=== PATIENT | male | born 1990 | race Caucasian/White ===

== ENCOUNTER → 2017-10-26 12:31 | Outpatient (CLI) | payer BC, SELFPAY ==
--- NOTE | 2017-10-26 12:47 | CT_ITS ---
CT abdomen pelvis wo con CLINICAL INDICATION: Hematuria, kidney stones, low back pain ITS.REASON: HEMATURIA ORDERING PHYSICIAN: Ranjana Garcia PATIENT AGE: 26 years COMPARISON: None TECHNIQUE: Axial images obtained with sagittal and coronal reformats. All CT scans at the facility use one or more dose reduction, viz: automated exposure control, ma/kV adjustment per patient size (including targeted exams where dose is matched to indication, i.e. head), or iterative reconstruction technique. PROCEDURE: Oral Contrast: None IV Contrast: None . FINDINGS: 4 mm noncalcified nodule present in the right lung base anteriorly nonspecific. The liver, spleen, adrenal glands, pancreas, gallbladder, and kidneys have unremarkable unenhanced CT appearance. No renal or ureteral calculi. No hydronephrosis. No obvious renal mass on this unenhanced exam. Unremarkable appendix. No intestinal obstruction, free air, or focal inflammatory change evident. There may be a small diverticulum in the sigmoid region but no evidence of diverticulitis No pelvic mass or abnormal fluid collection or focal inflammatory changes pelvis. No acute bony anomalies. IMPRESSION: No acute abdominal or pelvic findings.
== END ==
PROVIDERS: PCP Internal Medicine Adolescent Medicine; Visit Provider Nurse Practitioner Family
DX: R31.9 Hematuria, unspecified (principal)
CPT/HCPCS: 74176

== ENCOUNTER → 2018-02-14 12:44 | Outpatient (CLI) | payer BC, SELFPAY ==
--- NOTE | 2018-02-14 12:47 | CT_ITS ---
CT chest w con HISTORY: Follow-up pulmonary nodule ITS.REASON: LUNG NODULE ORDERING PHYSICIAN: Raz Castillo MD PATIENT AGE: 27 years COMPARISON: 10/26/2017 TECHNIQUE: Axial images obtained following the administration of 75 mL of Isovue 370 . Sagittal, and coronal reformatted images are also generated and reviewed. All CT scans at the facility use one or more dose reduction, viz: automated exposure control, ma/kV adjustment per patient size (including targeted exams where dose is matched to indication, i.e. head), or iterative reconstruction technique. FINDINGS: Residual thymic tissue noted in the anterior mediastinum. Mild cardiomegaly with prominent left ventricle. No evidence of aortic aneurysm or central pulmonary embolus. No change 4 x 2 mm nodule right lung base anteriorly. No other nodules.. No infiltrates or effusions. Upper abdominal images are unremarkable. No acute bony anomaly. There is a circumscribed lucency involving the vertebral body on the right at T11 measuring 8 mm possibly due to small hemangioma unchanged with a benign appearance. IMPRESSION: 1. No acute finding. 2. Cardiomegaly with left ventricular enlargement. 3. No change 4 mm nodule right lower lobe which may be due to to small intrapulmonary lymph node
== END ==
PROVIDERS: PCP Internal Medicine Adolescent Medicine; Visit Provider Internal Medicine Adolescent Medicine
DX: R91.1 Solitary pulmonary nodule (principal)
CPT/HCPCS: 71260; Q9967

== ENCOUNTER → 2018-03-05 09:35 | Outpatient (CLI) | payer BC, SELFPAY | PROVIDERS: PCP Internal Medicine Adolescent Medicine; Visit Provider Internal Medicine Adolescent Medicine | DX: I51.7 Cardiomegaly (principal) | CPT/HCPCS: 93306 ==

== ENCOUNTER 2018-05-04 10:57 | Outpatient (CLI) | payer BC, SELFPAY ==
[2018-05-04 12:13] LABS: INR 2.16 (0.9-1.1); Prothrombin Time 21.8 seconds (9.4-11.8)
[2018-05-04 13:45] LABS: PHA INR Fingerstick 2.7 (0.9-1.1)
== END 2018-05-04 14:22 | disposition home or self-care (01) ==
LOC: ACC 10:59
PROVIDERS: PCP Internal Medicine Adolescent Medicine; Visit Provider Thoracic Surgery (Cardiothoracic Vascular Surgery)
DX: Z51.81 Encounter for therapeutic drug level monitoring (principal); Z79.01 Long term (current) use of anticoagulants; Z95.2 Presence of prosthetic heart valve
CPT/HCPCS: 36415; 85610; 99211; G0463

== ENCOUNTER 2018-05-07 10:07 | Outpatient (CLI) | payer BC, SELFPAY ==
[2018-05-07 11:18] LABS: PHA INR Fingerstick 2.4 (0.9-1.1)
== END 2018-05-07 11:35 | disposition home or self-care (01) ==
LOC: ACC 10:07
PROVIDERS: PCP Internal Medicine Adolescent Medicine; Visit Provider Internal Medicine Adolescent Medicine
DX: Z51.81 Encounter for therapeutic drug level monitoring (principal); Z79.01 Long term (current) use of anticoagulants
CPT/HCPCS: 85610; 99211; G0463

== ENCOUNTER 2018-05-14 09:05 | Outpatient (CLI) | payer BC, SELFPAY ==
[2018-05-14 11:13] LABS: PHA INR Fingerstick 1.7 (0.9-1.1)
== END 2018-05-14 12:53 | disposition home or self-care (01) ==
LOC: ACC 09:05
PROVIDERS: PCP Internal Medicine Adolescent Medicine; Visit Provider Internal Medicine Adolescent Medicine
DX: Z51.81 Encounter for therapeutic drug level monitoring (principal); Z79.01 Long term (current) use of anticoagulants
CPT/HCPCS: 85610; 99211; G0463

== ENCOUNTER 2018-05-23 10:31 | Outpatient (CLI) | payer BC, SELFPAY ==
[2018-05-23 14:19] LABS: PHA INR Fingerstick 1.8 (0.9-1.1)
== END 2018-05-23 14:28 | disposition home or self-care (01) ==
LOC: ACC 10:31
PROVIDERS: PCP Internal Medicine Adolescent Medicine; Visit Provider Internal Medicine Adolescent Medicine
DX: Z51.81 Encounter for therapeutic drug level monitoring (principal); Z79.01 Long term (current) use of anticoagulants
CPT/HCPCS: 85610; 99211; G0463

== ENCOUNTER 2018-05-25 14:35 | Outpatient (CLI) | payer BC, SELFPAY ==
[2018-05-25 15:57] LABS: PHA INR Fingerstick 1.8 (0.9-1.1)
== END 2018-05-25 16:07 | disposition home or self-care (01) ==
LOC: ACC 14:39
PROVIDERS: PCP Internal Medicine Adolescent Medicine; Visit Provider Internal Medicine Adolescent Medicine
DX: Z51.81 Encounter for therapeutic drug level monitoring (principal); Z79.01 Long term (current) use of anticoagulants
CPT/HCPCS: 85610; 99211; G0463

== ENCOUNTER 2018-05-28 10:19 | Outpatient (CLI) | payer BC, SELFPAY ==
[2018-05-28 15:57] LABS: PHA INR Fingerstick 2.3 (0.9-1.1)
== END 2018-05-28 15:59 | disposition home or self-care (01) ==
LOC: ACC 10:20
PROVIDERS: PCP Internal Medicine Adolescent Medicine; Visit Provider Internal Medicine Adolescent Medicine
DX: Z51.81 Encounter for therapeutic drug level monitoring (principal); Z79.01 Long term (current) use of anticoagulants
CPT/HCPCS: 85610; 99211; G0463

== ENCOUNTER 2018-06-04 11:14 | Outpatient (CLI) | payer BC, SELFPAY ==
[2018-06-04 16:06] LABS: PHA INR Fingerstick 1.7 (0.9-1.1)
== END 2018-06-04 16:11 | disposition home or self-care (01) ==
LOC: ACC 11:14
PROVIDERS: PCP Internal Medicine Adolescent Medicine; Visit Provider Internal Medicine Adolescent Medicine
DX: Z51.81 Encounter for therapeutic drug level monitoring (principal); Z79.01 Long term (current) use of anticoagulants
CPT/HCPCS: 85610; 99211; G0463

== ENCOUNTER 2018-06-13 11:13 | Outpatient (CLI) | payer BC, SELFPAY ==
[2018-06-13 15:44] LABS: PHA INR Fingerstick 2.5 (0.9-1.1)
== END 2018-06-13 15:46 | disposition home or self-care (01) ==
LOC: ACC 11:14
PROVIDERS: PCP Internal Medicine Adolescent Medicine; Visit Provider Internal Medicine Adolescent Medicine
DX: Z51.81 Encounter for therapeutic drug level monitoring (principal); Z79.01 Long term (current) use of anticoagulants; Z95.2 Presence of prosthetic heart valve
CPT/HCPCS: 85610; 99211; G0463

== ENCOUNTER → 2018-10-18 14:55 | Outpatient (CLI) | payer BC, SELFPAY ==
--- NOTE | 2018-10-18 14:59 | CA_ITS ---
PROCEDURE: 2-D M-mode and color Doppler study INDICATIONS FOR THE TEST: Chest pain COPD Heart Murmur Tobacco Smoking Palpitations+ Fatigue Syncope Edema Hypertension+Diabetes Mellitus Rheumatic Fever SOB HERNANDEZ Obesity Hyperlipidemia+ Family History HD+ Additional History cardiomegaly, chest pressure PATIENT INFORMATION HEIGHT: 70 WEIGHT: 213 GENDER: Male B/P: 122/74 2-D/M-MODE INTERPRETATION: 2-D MEASUREMENTS OBSERVED VALUES IN CMS Right Ventricular Dimension (RVDd) 2.7 Interventricular Septum (Thickness)(IVsd) 0.9 Left Ventricular Internal Dimensions(LVIDd) 5.3 Left Ventricular Posterior Wall (Thickness)(LVPWd) 1.0 Aortic Root 2.0 5 Aortic Cusp Separation Left Atrial Dimensions (LAD) 3.2 2D 1. Left atrium is mildly enlarged, left ventricle is qualitatively mildly enlarged, there is no concentric left ventricular hypertrophy, visually estimated ejection fraction 55% with no regional wall motion abnormality. 2 .The right atrium and right ventricle are mildly enlarged with normal contractility 3. There is a mechanical prosthetic valve noted in the aortic position, leaflets are not well visualized. 4. The mitral and tricuspid valve are grossly normal. 5. The pulmonic valve is poorly visualized. 6. No significant pericardial effusion noted. DOPPLER INTERROGATION: 1. The maximum aortic out flow velocity recorded study 3.34 m/s, resulting in a mean gradient across valve of 28 mmHg, this represents at least moderate study valve stenosis, there is severe aortic insufficiency. 2. The mitral inflow velocity within normal range, there is no mitral stenosis, there is mild mitral regurgitation. Diastolic parameters are within normal range. 3. There is mild tricuspid regurgitation, tricuspid regurgitation jet velocity is inadequate for calculation of the right ventricular systolic pressure. CONCLUSION: 1. Mildly enlarged left atrium, mildly dilated left ventricle, visually estimated ejection fraction 55% with no regional wall motion abnormality. 2. Prosthetic valve in aortic position, mean gradient across valve is 28 mmHg which represents at least moderate prosthetic valve stenosis, there is severe aortic insufficiency. 3. Mild mitral and tricuspid regurgitation 4. Transesophageal echocardiogram is recommended for further evaluation of the prosthetic valve function.
== END ==
PROVIDERS: PCP Internal Medicine Adolescent Medicine; Visit Provider Internal Medicine Adolescent Medicine
DX: Z95.2 Presence of prosthetic heart valve (principal)
CPT/HCPCS: 93306

== ENCOUNTER → 2019-01-28 09:41 | Outpatient (CLI) | payer BC, SELFPAY ==
[2019-01-28 10:02] LABS: Basophils # 0.1 K/mm3 (0-0.2); Basophils % 1.4 % (0.1-2.0); Eosinophils # 0.3 K/mm3 (0.0-0.4); Eosinophils % 4.5 % (0.1-12.0); Hematocrit 39.8 % (42.0-52.0); Hemoglobin 12.4 g/dL (14.1-18.0); Lymphocytes # 1.7 K/mm3 (0.7-4.5); Lymphocytes % 24.2 % (10-50); Mean Corpuscular HGB Conc 31.1 g/dL (31.8-35.4); Mean Corpuscular Volume 93.4 fl (80-94); Monocytes # 0.4 K/mm3 (0.1-1.0); Monocytes % 5.1 % (1.7-9.3); Neutrophils # 4.4 K/mm3 (1.8-7.8); Neutrophils % 64.8 % (37.0-80.0); Platelet Count 348 K/mm3 (142-424); Red Blood Count 4.26 M/mm3 (4.60-6.20); Red Cell Distribution Width 14.1 % (11.5-17.5); White Blood Count 6.8 K/mm3 (4.8-10.8)
[2019-01-28 10:50] LABS: Anion Gap 13.3 mEq/L (5-15); Blood Urea Nitrogen 12 mg/dL (7-18); Calcium 9.2 mg/dL (8.5-10.1); Carbon Dioxide 28 mmol/L (21.0-32.0); Chloride 105 mmol/L (98-107); Creatinine,Serum 0.73 mg/dL (0.70-1.30); Estimated Glomerular Filt Rate 127 ml/min (>60); GFR (African American) 154 ML/MIN (>60); Glucose 84 mg/dL (74-106); Potassium 4.3 mmoL/L (3.5-5.1); Sodium 142 mmol/L (136-145)
== END ==
PROVIDERS: Visit Provider Thoracic Surgery (Cardiothoracic Vascular Surgery)
DX: I35.1 Nonrheumatic aortic (valve) insufficiency (principal); R03.0 Elevated blood-pressure reading, without diagnosis of hypertension
CPT/HCPCS: 36415; 80048; 85025

== ENCOUNTER 2019-02-04 13:01 | Outpatient (RCR) | payer BC, SELFPAY | END 2019-06-19 10:19 | disposition home or self-care (01) | LOC: PT 13:01 | PROVIDERS: Visit Provider Thoracic Surgery (Cardiothoracic Vascular Surgery) | DX: Z95.2 Presence of prosthetic heart valve (principal) ==

== ENCOUNTER → 2019-02-26 15:02 | Outpatient (CLI) | payer BC, SELFPAY ==
--- NOTE | 2019-02-26 15:02 | CA_ITS ---
APPROVED REPORT EXAM: Comprehensive 2D, Doppler, and color-flow Echocardiogram [employer]im [employer] Crown Laminating Operator: Nicolle Soto CRT Ht: 5 ft 10 in Wt: 223lbs BSA: 2.19 BP: 125/69 mmHg Indications: Aortic Valve Disease, PROSTHETIC AV 2D Dimensions LVOT 1.73 cm (M/F) 1.5-2.5 M-Mode Dimensions RVDd 3.37 cm (0.9-2.6) LVDd 5.14 cm (3.5-5.7) LVDs 4.26 cm (3.5-5.7) IVSd 1.08 cm (0.6-1.1) PWd 0.90 cm (0.6-1.1) EF (Teich) 35.50% FS 17.10% EDV (Teich) 126.10 mL ESV (Teich) 81.30 mL LV Diastology E/A Ratio 1.31 Aortic Valve LVOT Max 134.00 (70-110 cm/s) LVOT VTI 25.63 cm Mitral Valve MV A Velocity 54.00 (40-130 cm/s) Left Ventricle Left atrium is mildly enlarged, left ventricle is normal size, left ventricle wall thickness is upper limit of the normal, there is abnormal septal motion, visually estimated ejection fraction 45% with no regional wall motion abnormality. Right Ventricle Right atrium and right ventricular normal size and contractility. Aortic Valve There is a bioprosthetic valve noted in the aortic position, the valve is well-seated. Mean gradient across valve is 12 mmHg which is within acceptable range for the skin valve, there is no aortic insufficiency. Mitral Valve Mitral valve is grossly normal, there is mild mitral regurgitation. Tricuspid Valve Tricuspid valve is grossly normal, there is mild tricuspid regurgitation, tricuspid regurgitation jet velocity is inadequate for calculation of the right ventricular systolic pressure. Pulmonic Valve Pulmonic valve is poorly visualized. Great Vessels Aortic root is normal size. Pericardium No significant pericardial effusion noted. Conclusion 1. Mildly enlarged left atrium, normal left ventricular size, abnormal septal motion, visually estimated ejection fraction 45% with no regional wall motion abnormality, diastolic parameters are within normal range. 2. Normal functioning bioprosthetic valve in the aortic position without significant aortic outflow obstruction or aortic insufficiency. 3. Mild mitral and tricuspid regurgitation. 4. No significant pericardial effusion noted. Electronically signed by : Wilmer Amador, 02/27/2019 06:45:00
== END ==
PROVIDERS: PCP Internal Medicine Adolescent Medicine; Visit Provider Internal Medicine Cardiovascular Disease
DX: Z95.2 Presence of prosthetic heart valve (principal); Z95.3 Presence of xenogenic heart valve
CPT/HCPCS: 93306

== ENCOUNTER → 2019-07-31 09:31 | Outpatient (CLI) | payer BC, SELFPAY ==
--- NOTE | 2019-07-31 | CA_ITS ---
APPROVED REPORT Exam: Exercise Treadmill Technologist: Tika Saldivar Ht: 5 ft 10 in Wt: 215 lbs BSA: 2.15 m2 HR: 68 bpm BP: 134/73 mmHg Indications: Dyspnea Medical History Medications: Omeprazole,,,,, Aspirin,,,,, Losartan,,,,, Diclofenac,,,,, Stress Test Details Test: Aime HR Resting HR: 81 bpm Max Heart Rate (APMHR): 191 bpm Max HR Achieved: 170 bpm Target HR (85% APMHR): 162 bpm % of APMHR: 89 Recovery HR: 109 bpm BP Resting BP: 134.0/73.0 mmHg Max BP: 156.0/52.0 mmHg Recovery BP: 141.0/82.0 mmHg ECG Medications Administered Aminophylline ( mg at ) Clinical Exercise duration: 09:11 min Highest Stage Achieved: Exercise capacity: 10.1 METs Stress ECG Conclusion Resting ECG: Sinus rhythm Aime protocol completed. Exercised 09:11. Test stopped due to leg fatigue and shortness of breath. Symptoms: Shortness of breath (usually short of breath) and leg fatigue at peak exercise. Resolved in recovery. Arrhythmias/Ectopy: No ectopy ST-T Changes: Greater than 1.[address] depression. Conclusion: GXT only. Appropriate blood pressure response. Good exercise tolerance. No ectopy. No chest pain. Less than 1.[address] depression noted. Electronically signed by : Wilmer Amador, 08/01/2019 14:07:20
== END ==
PROVIDERS: PCP Internal Medicine Adolescent Medicine; Visit Provider Internal Medicine Cardiovascular Disease
DX: Z95.3 Presence of xenogenic heart valve (principal); Z95.2 Presence of prosthetic heart valve
CPT/HCPCS: 93017

== ENCOUNTER → 2020-03-10 15:18 | Outpatient (CLI) | payer BC, SELFPAY ==
--- NOTE | 2020-03-10 15:21 | XR_ITS ---
PROCEDURE: XR FOOT WT BEARING RT 3V CLINICAL INDICATION: pain COMPARISON: CR FTR3 FOOT-RT-3 VIEWS from 11/13/2015 FINDINGS: No fracture or dislocation. No lytic or blastic change. There is normal mineralization. There is pes planus with osteoarthritic change noted at the talonavicular joint and calcaneocuboid joint. There is some sclerosis along the inferior aspect of the calcaneus centrally and anteriorly. This is best seen on the oblique view. Other findings:None. IMPRESSION: Pes planus with degenerative change Dictated by: Anderson Cristina MD 03/10/2020 15:39 Anderson Cristina MD in [place] 03/10/2020 15:39
--- NOTE | 2020-03-10 15:21 | XR_ITS ---
PROCEDURE: XR FOOT WT BEARING LT 3V CLINICAL INDICATION: pain COMPARISON: CR FTR3 FOOT-RT-3 VIEWS from 11/13/2015 FINDINGS: No fracture or dislocation. No lytic or blastic change. There is normal mineralization. The joint spaces are well-preserved. No significant degenerative/arthritic changes. No erosive changes evident. Other findings:There is pes planus with mild osteoarthritic change at the talonavicular joint. IMPRESSION: Pes planus Dictated by: Anderson Cristina MD 03/10/2020 15:40 Anderson Cristina MD in [facility] 03/10/2020 15:40
== END ==
PROVIDERS: PCP Internal Medicine Adolescent Medicine; Visit Provider Podiatrist
DX: M19.072 Primary osteoarthritis, left ankle and foot (principal); M19.071 Primary osteoarthritis, right ankle and foot; M21.6X1 Other acquired deformities of right foot; M21.6X2 Other acquired deformities of left foot; M76.822 Posterior tibial tendinitis, left leg; M76.821 Posterior tibial tendinitis, right leg
CPT/HCPCS: 73630

== ENCOUNTER → 2020-05-25 07:54 | Outpatient (CLI) | payer BC, SELFPAY ==
--- NOTE | 2020-05-25 07:54 | MR_ITS ---
PROCEDURE: MR ANKLE LT WO CON CLINICAL INDICATION: foot pain COMPARISON: CR XR FOOT WT BEARING LT 3V from 03/10/2020 TECHNIQUE: Routine multiplanar multi echo sequences are performed without gadolinium enhancement. FINDINGS: There is diffuse increased T2 signal involving the mid and distal aspect of the calcaneus as well as the lateral aspect of the talus. The tibiofibular ligaments unremarkable. The ATFL and PT FL appears intact. The deltoid ligament also appears intact. Talar dome has an unremarkable appearance. The posterior tibialis, flexor digitorum longus and flexor hallucis longus tendons appearing intact as do the peroneal longus and brevis tendons. The anterior extensor tendons are unremarkable. There is lateral location of the navicular at the talonavicular joint with uncovering of the medial aspect of the talar head. No evidence of tarsal coalition. There are mild degenerative changes in the tarsal bones. No abnormal fluid collections evident. No bony destructive process. There is pes planus. There is a small amount of fluid present in Kager's fat pad region. IMPRESSION: Pes planus. No tendinous or ligamentous abnormalities. Diffuse bone marrow edema of the calcaneus and talus. Etiology is indeterminate. Mild degenerative changes of the tarsal bones Dictated by: Anderson Cristina MD 05/25/2020 14:48 Anderson Cristina MD in [facility] 05/25/2020 14:48
--- NOTE | 2020-05-25 16:52 | XR_ITS ---
PROCEDURE: XR CHEST 2V CLINICAL HISTORY: HX OF OPEN HEART SURGERY Heart disease COMPARISON: CT CHESTW CT chest w con from 02/14/2018 CR CXR2V XR chest 2V from 05/03/2018 FINDINGS: Prior median sternotomy and aortic valve replacement. Normal heart size. No evidence of CHF. The lungs are clear without infiltrates, suspicious nodules, or pleural effusions. No acute bony abnormalities. IMPRESSION: No acute findings. Dictated by: Anderson Cristina MD 05/26/2020 07:19 Anderson Cristina MD in [facility] 05/26/2020 07:19
[2020-05-25 17:36] LABS: Basophils # 0.1 K/mm3 (0-0.2); Basophils % 0.8 % (0.1-2.0); Eosinophils # 0.1 K/mm3 (0.0-0.4); Eosinophils % 1.3 % (0.1-12.0); Hematocrit 44.9 % (42.0-52.0); Hemoglobin 14.7 g/dL (14.1-18.0); Lymphocytes # 2.1 K/mm3 (0.7-4.5); Mean Corpuscular HGB Conc 32.7 g/dL (31.8-35.4); Mean Corpuscular Hemoglobin 29.7 pg (27.0-31.2); Mean Corpuscular Volume 90.7 fl (80-94); Monocytes # 0.3 K/mm3 (0.1-1.0); Neutrophils # 4.1 K/mm3 (1.8-7.8); Platelet Count 259 K/mm3 (142-424); Red Blood Count 4.96 M/mm3 (4.60-6.20); Red Cell Distribution Width 13.4 % (11.5-17.5); White Blood Count 6.6 K/mm3 (4.8-10.8)
[2020-05-25 18:43] LABS: Alanine Aminotransferase 21 U/L (12-78); Albumin Level 4.9 g/dl (3.5-5.0); Albumin/Globulin Ratio 1.5 (1.1-1.8); Alkaline Phosphatase 96 U/L (38-126); Anion Gap 9.3 mEq/L (5-15); Aspartate Amino Transferase 26 U/L (17-59); Bilirubin,Total 0.3 mg/dl (0.2-1.3); Blood Urea Nitrogen 11 mg/dl (9-20); Calcium 9.8 mg/dl (8.4-10.2); Carbon Dioxide 29 mmol/L (22.0-30.0); Chloride 105 mmol/L (98-107); Estimated Glomerular Filt Rate 114 ml/min (>60); GFR (African American) 137 ML/MIN (>60); Globulin 3.3 g/dL (1.3-3.2); Glucose 87 mg/dl (74-100); Potassium 4.3 mmoL/L (3.5-5.1); Sodium 139 mmol/L (136-145); Total Protein,Serum 8.2 g/dl (6.3-8.2)
[2020-05-25 19:03] LABS: 25-OH Vitamin D, Total < 12.8 ng/mL (30-100)
== END ==
PROVIDERS: PCP Internal Medicine Adolescent Medicine; Visit Provider Podiatrist
DX: M19.072 Primary osteoarthritis, left ankle and foot (principal); M25.572 Pain in left ankle and joints of left foot; M25.872 Other specified joint disorders, left ankle and foot; M19.071 Primary osteoarthritis, right ankle and foot; E55.9 Vitamin D deficiency, unspecified; Z98.890 Other specified postprocedural states
CPT/HCPCS: 36415; 71046; 73721; 80053; 82306; 85025

== ENCOUNTER → 2020-06-01 14:47 | Outpatient (CLI) | payer BC, SELFPAY ==
[2020-06-02 09:20] LABS: Coronavirus 19 IgG Antibody Positive (Negative); Coronavirus 19 IgM Antibody Positive (Negative)
== END ==
PROVIDERS: Visit Provider Podiatrist
DX: Z01.818 Encounter for other preprocedural examination (principal); Z20.822 Contact with and (suspected) exposure to COVID-19; Z86.16 Personal history of COVID-19; M79.672 Pain in left foot; M79.671 Pain in right foot; M21.42 Flat foot [pes planus] (acquired), left foot
CPT/HCPCS: 36415; 86328

== ENCOUNTER → 2020-06-02 12:49 | Outpatient (CLI) | payer BC, SELFPAY | PROVIDERS: PCP Internal Medicine Adolescent Medicine; Visit Provider Podiatrist | DX: Z20.822 Contact with and (suspected) exposure to COVID-19 (principal); Z01.818 Encounter for other preprocedural examination; U07.1 COVID-19 | CPT/HCPCS: U0003 ==

== ENCOUNTER → 2020-06-15 08:20 | Outpatient (CLI) | payer BC, SELFPAY | PROVIDERS: PCP Internal Medicine Adolescent Medicine; Visit Provider Podiatrist | DX: Z20.822 Contact with and (suspected) exposure to COVID-19 (principal) | CPT/HCPCS: U0003 ==

== ENCOUNTER 2020-06-17 13:30 | Observation (INO) | payer BC, SELFPAY ==
[2020-05-28 12:44] VITALS: BMI 32.3
[2020-06-17] VITALS (25 sets, daily range): BP systolic 110–141; BP diastolic 55–89; PULSE 79–120; RESP 14–20; TEMP 6.1–43; O2SAT 92–100; BMI 35.2
--- NOTE | 2020-06-17 07:29 | XR_ITS ---
PROCEDURE: XR ANKLE LT MIN 3V CLINICAL INDICATION: Post op flatfoot COMPARISON: CR ANKR3 ANKLE-RT-3 VIEWS from 11/13/2015 FINDINGS: Postsurgical changes with internal fixation of the calcaneum and talus noted. The presence of plastic cast limits evaluation for bony pathologies. Alignment appears satisfactory. No significant soft tissue abnormality is noted. IMPRESSION: Internal fixation of the hindfoot. Dictated by: Opal Mehta 06/17/2020 16:49 Opal Mehta in [place] 06/17/2020 16:49
--- NOTE | 2020-06-17 07:47 | HMH.ANESCL ---
[facility] Anesthesia Checklist - Patient Identification Patient Identification: Arm Band - Structural Data Admitted From: Home Planned Operative Procedure/s: L. flat foot reconstruction, gastrocnemius recession, etc. Consent for Planned Operative Procedure(s) Verified: Yes - NPO Status Verified Time NPO: 00:00 - Additional verifications Anesthesia Reactions: No Hx Blood Transfusions: No Blood Transfusion Reaction: No - Airway Assessment C-Spine Mobility Assessed: Yes TMJ Mobility Assessed: Yes Dentition: Good Dentition - Neurological Assessment Level of Consciousness: Awake, Alert Hx Seizures: No Numbness or tingling in extremities: No - Anesthesia Plan Anesthesia Risk discussed: Yes Anesthesia Plan: Verified ASA Class: II Anesthesia Type: General w/block [facility] History I have reviewed the patient's past medical history: Yes Medical History: Reports:: Congenital Heart Disease, Gastroesophageal Reflux Disease(GERD), Valvular Heart Disease Denies:: Cancer, Diabetes Mellitus Type 1, Diabetes Mellitus Type 2, Internal Pacemaker (Blood clot on mechanical valve), MRSA, Seizures *Have you ever received a pneumonia vaccine?: No *Have you received a flu vaccine this season?: No Other Medical History: Denies: Blood Transfusion Reaction Anesthesia experience/problems:: None Other Surgeries: Yes: No Previous Surgery, Cardiac Surgery (Mechanical aortic valve APR 2018 then pig aortic valve DEC 2018.). No: Pacemaker (Blood clot on mechanical valve) Amputation: No Fractures: No - *Social History Last grade of school completed: Some college Smoking Status: Never smoker Alcohol Intake: current Alcohol Intake Frequency:: holidays/special occasions only Substance Use Type: denies use *Occupational Status:: employed Housing: house Household Members: family *Travel in the last 8 weeks: None Family Hx:: Cancer, Diabetes, Heart Attack, Stroke
--- NOTE | 2020-06-17 12:00 | XR_ITS ---
PROCEDURE: XR FOOT LT MIN 3V CLINICAL INDICATION: Post op flatfoot COMPARISON: CR FTR3 FOOT-RT-3 VIEWS from 11/13/2015 CR XR FOOT WT BEARING RT 3V from 03/10/2020 CR XR FOOT WT BEARING LT 3V from 03/10/2020 CR XR FOOT LT 2V from 06/17/2020 FINDINGS: Postsurgical changes with internal fixation of the hindfoot. Multiple screws are noted in the posterior subtalar joint extending into the calcaneum. Internal fixation with screws noted subtalar joint extending into the navicular bone. Presence of plastic cast limits evaluation. No other acute bony abnormality is noted. IMPRESSION: Postsurgical changes with internal fixation of the hindfoot. Dictated by: Opal Mehta 06/17/2020 16:52 Opal Mehta in [place] 06/17/2020 16:52
--- NOTE | 2020-06-17 12:00 | XR_ITS ---
PROCEDURE: XR CALCANEUS LT MIN 2V CLINICAL INDICATION: Post op COMPARISON: X-rays of the foot and ankle of the same date. FINDINGS: Internal fixation of the talus and calcaneum are partially visualized. Presence of plastic cast limits evaluation for bony details. No significant soft tissue abnormality within the limitations of the study. IMPRESSION: Internal fixation of the hindfoot. Dictated by: Opal Mehta 06/17/2020 16:50 Opal Mehta in [place] 06/17/2020 16:50
--- NOTE | 2020-06-17 13:26 | HMH.OPNOTE ---
Date of procedure: 06/17/20 Pre-op Diagnosis:: 1. Acquired pes planus of left foot 2. Tarsal coalition of left foot 3. Left posterior tibial tendon dysfunction (PTTD) 4. Acquired equinus deformity of both feet 5. Sinus tarsi syndrome of left ankle 6. Primary osteoarthritis of left foot 7. Impingement of left ankle joint 8. History of aortic valve replacement with bioprosthetic valve 9. History of mechanical aortic valve replacement 10. Chronic pain of left ankle 11. Obesity (BMI 30.0-34.9) Post-op Diagnosis:: Same Procedure performed:: 1. Left flatfoot reconstruction 2. Left gastroc recession 3. Left tarsal coalition resection 4. Left hindfoot arthrodesis (triple arthrodesis) 5. Left calcaneal osteotomy (lateral column lengthening) 6. Left foot synovectomy 7. Left posterior tibial tendon debridement/tenosynovectomy 8. Left application of graft 9. Left application of posterior splint Surgeon:: Jory Sanchez DPM Patient Services Specialist(s):: Tisha Dodd CONDUIT INSTALLER:: Other (Marta Ríos) Anesthesia: GETA, regional (Left popliteal, saph nerve block) Estimated blood loss (mL): 50 Clinical Note:: Patient is a 29 y/o male who has chronic b/l foot pain. He has had flatfoot all his life. 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 I discussed the condition and etiology of coalition and PTTD with the patient in detail. We discussed how weakness of the PT tendon can cause the arch to collapse, resulting in a flat foot. I explained how over time the flatfoot could lead to arthritis and progression of bunion deformity. X-rays 3 views WB b/l feet taken 03/10/20 evaluated by myself. Images reviewed and discussed with the patient. Report noted. RIGHT FOOT FINDINGS: No fracture or dislocation. No lytic or blastic change. There is normal mineralization. There is pes planus with osteoarthritic change noted at the talonavicular joint and calcaneocuboid joint. There is some sclerosis along the inferior aspect of the calcaneus centrally and anteriorly. This is best seen on the oblique view. Other findings: None. IMPRESSION: Pes planus with degenerative change. LEFT FOOT FINDINGS: No fracture or dislocation. No lytic or blastic change. There is normal mineralization. The joint spaces are well-preserved. No significant degenerative/arthritic changes. No erosive changes evident. Other findings: There is pes planus with mild osteoarthritic change at the talonavicular joint. IMPRESSION: Pes planus. MRI left ankle taken 05/25/20. FINDINGS: There is diffuse increased T2 signal involving the mid and distal aspect of the calcaneus as well as the lateral aspect of the talus. The tibiofibular ligaments unremarkable. The ATFL and PT FL appears intact. The deltoid ligament also appears intact. Talar dome has an unremarkable appearance. The posterior tibialis, flexor digitorum longus and flexor hallucis longus tendons appearing intact as do the peroneal longus and brevis tendons. The anterior extensor tendons are unremarkable. There is lateral location of the navicular at the talonavicular joint with uncovering of the medial aspect of the talar head. No evidence of tarsal coalition. There are mild degenerative changes in the tarsal bones. No abnormal fluid collections evident. No bony destructive process. There is pes planus. There is a small amount of fluid present in Kager's fat pad region. IMPRESSION: Pes planus. No tendinous or ligamentous abnormalities. Diffuse bone marrow edema of the calcaneus and talus. Etiology is indeterminate. Mild degenerative changes of the tarsal bones. Patient has failed conservative care, including modification of shoe gear, modification of activity, strapping/bracing, taping, splints, icing, anti-inflammatory medication, change in shoes/inserts, prefab/custom orthotics, stretching, and physical therapy. We discussed surgical intervention at length. Patient understands post op, he will be NWB 6-8 weeks then transition PPWB 1-2 weeks
--- NOTE | 2020-06-17 13:30 | XR_ITS ---
PROCEDURE: XR FOOT LT 2V CLINICAL INDICATION: LEFT FOOT RECONSTRUCTION IN OR COMPARISON: CR FTR3 FOOT-RT-3 VIEWS from 11/13/2015 CR XR FOOT WT BEARING RT 3V from 03/10/2020 CR XR FOOT WT BEARING LT 3V from 03/10/2020 FINDINGS: Fluoroscopic images of the left foot demonstrate internal fixation of the talus and calcaneum. No evidence of malalignment noted. IMPRESSION: Internal fixation of the hindfoot. Dictated by: Opal Mehta 06/17/2020 15:37 Opal Mehta in [place] 06/17/2020 15:37
--- NOTE | 2020-06-17 13:47 | P.PN_ITS ---
[facility] Anesthesia Record Part I Intake, IV Amount: 2,000 Estimated blood loss (mL): 50 Urine output (mL): 900 Blood Pressure: 118/61 SaO2: 92 Pulse Rate: 84 Respiratory Rate: 14 Temperature: 97.3 F Patient is:: Awake Stable to PACU at:: 14:45
[2020-06-17 15:40] LABS: Microscopic,Cath URINE MICROSCOPIC (MICROSCOPIC)
[2020-06-17 15:50] LABS: Appearance,Urine/Cath CLEAR (Clear); Bilirubin,Cath Negative (Negative); Blood, Urine/Cath Negative (Negative); Color,Urine/Cath YELLOW (Yellow); Glucose,Urine/Cath (UA) Negative (Negative); Ketones,Urine/Cath Negative (Negative); Leukocyte Esterase,Cath Negative (Negative); Nitrate,Cath Negative (Negative); Protein,Urine/Cath Negative (Negative); Specific Gravity, Urine/Cath >= 1.030 (1.005-1.030); Urobilinogen,Cath 0.2 EU/dl (0.2)
--- NOTE | 2020-06-17 16:01 | HMH.ANESII ---
[facility] Anesthesia Record Part II Discharge Time: 14:35 Destination: Second Floor PACU nurse assessment reviewed?: Yes Patient Condition:: Good Anesthesia Complications:: None Swallowing reflex intact?: Yes Cyanosis?: No Blood Pressure: 141/86 Pulse Rate: 84 Temperature: 97.8 F Mental Status: Alert & Oriented Pain level:: 3 Nausea and/or vomitting:: None Intake, IV Amount: 2,000
--- NOTE | 2020-06-17 16:40 | HMH.PHAVTE ---
[facility] VTE Monitoring - Patient Demographics Admission date: 06/17/20 Report Date: 06/17/20 Time: 16:40 Allergies/Adverse Reactions: Patient Allergies No Known Allergies Allergy (Verified 05/25/20 15:45) Height: 1.78 m Weight: 102.058 kg - VTE Risk Clinical Trial Participant: No - Prophylaxis VTE Prophylaxis Ordered?: Yes Types of VTE Prophylaxis: TEDS Knee High
--- NOTE | 2020-06-17 16:58 | HMH.HPDC ---
General - General Admission date:: 06/17/20 Discharge date: 06/18/20 *Admission Date: 06/17/20 *Chief complaint: Left pes planus *History of present illness: The patient is a 29M who was admitted for 23 hours observation for pain control and physical therapy gait training after left flatfoot reconstruction. Patient has a history of an aortic valve replacement with a stroke after surgery. Patient previously had medical and cardiac clearance by Dr. Castillo and Dr. WASHINGTON. Patient is to be on anticoagulant therapy postoperatively. Patient denies pain currently. He denies nausea vomiting, fever chills, shortness of breath or chest pain. [facility] History I have reviewed the patient's past medical history: Yes Medical History: Reports:: Congenital Heart Disease, Gastroesophageal Reflux Disease(GERD), Valvular Heart Disease Denies:: Cancer, Diabetes Mellitus Type 1, Diabetes Mellitus Type 2, Internal Pacemaker (Blood clot on mechanical valve), MRSA, Seizures *Have you ever received a pneumonia vaccine?: No *Have you received a flu vaccine this season?: No Other Medical History: Denies: Blood Transfusion Reaction Anesthesia experience/problems:: None Other Surgeries: Yes: No Previous Surgery, Cardiac Surgery (Mechanical aortic valve APR 2018 then pig aortic valve DEC 2018.). No: Pacemaker (Blood clot on mechanical valve) Amputation: No Fractures: No - *Social History Last grade of school completed: Some college Smoking Status: Never smoker Alcohol Intake: never Alcohol Intake Frequency:: holidays/special occasions only Substance Use Type: denies use *Occupational Status:: employed Housing: house Household Members: family *Travel in the last 8 weeks: None Family Hx:: Cancer, Diabetes, Heart Attack, Stroke Review of Systems - Review of Systems Review of systems:: pertinent systems reviewed and negative unless documented below - Constitutional Denies anorexia - Eyes Denies blind spots - ENT Denies abnormal hearing - *Cardiovascular Denies chest pain, Denies shortness of breath - *Respiratory Denies shortness of breath - *Gastrointestinal Denies abdominal pain - *Musculoskeletal Reports joint swelling, Reports limited joint movement - Integumentary/Breasts Denies hair loss - *Neurologic Denies abnormal walking - Psychiatric Denies abnormal sleep pattern - Endocrine Denies cold intolerance - Hematologic/Lymphatic Reports easy bruising - Allergic/Immunologic Reports GI upset with certain foods Exam Vital signs and Labs for Last 24 Hours: Temp Pulse Resp BP Pulse Ox 98.3 F 97 H 16 136/76 96 06/17/20 16:05 06/17/20 16:05 06/17/20 16:05 06/17/20 16:05 06/17/20 16:34 Laboratory Results - last 24 hr 06/17/20 07:40: Urine Color Yellow, Urine Appearance Clear, Urine pH 6.0, Ur Specific [place] >= 1.030, Urine Protein Negative, Urine Glucose (UA) Negative, Urine Ketones Negative, Urine Blood Negative, Urine Nitrate Negative, Urine Bilirubin Negative, Urine Urobilinogen 0.2, Ur Leukocyte Esterase Negative I & O for Last 24 hours: Intake & Output 06/15/20 06/16/20 06/17/20 06/18/20 11:59 11:59 11:59 11:59 Intake Total 4780 / 4780 Balance 4780 / 4780 Weight 245 lb 8 oz - Constitutional no acute distress, obese - *Routine HEENT Exam Head: Present: normocephalic Eye: Present: EOMI ENT: Present: mucous membranes moist - *Routine Neck Exam Present: supple - *Routine Respiratory Exam Present: accessory muscle use - *Routine Cardiovascular Exam Present: RRR - *Routine Abdominal Exam Present: soft - *Routine Rectal Exam Patient deferred: visual exam - *Routine Exam Patient deferred: penile exam - *Routine Extremities Exam Present: pulses intact, normal capillary refill - *Routine Skin Exam Present: intact, warm - *Routine Neurological Exam Present: alert, oriented X3 - Detailed Lower Extremity Exam Comments: Left lower extremity dressing and s
[2020-06-17 17:32] LABS: Bacteria,Urine/Cath TRACE /lpf; Uric Acid Crystals,Ur/Cath 3+ /lpf
[2020-06-17 17:33] LABS: CA Oxalate Crystals,Ur/Cath Trace /lpf
--- NOTE | 2020-06-17 19:20 | PC.NURSE ---
Made Dr. Irvin aware of positive occult stool. NNO.
--- NOTE | 2020-06-17 19:27 | PC.NURSE ---
Pt alert and oriented x 4 and able to make needs known. RR even and unlabored. NAD. Denies any pain at this time, have asked frequently. VSS. Did apply cardiac mx, r/t increased hr, 100-115. Pt denies chest pain or soa. Has been sinus tach on tele. BS hypoactive, states he had a bm yesterday. Mumur noted upon auscultation. Lungs cta. Scud in place to RLE and surgical dsg is cdi to LLE as well as YANET drain. Have given report on pt.
--- NOTE | 2020-06-17 19:48 | PC.NURSE ---
Have paged Dr. Castillo in RE to pts HR and to ask for metoprolol order at approx 1945. Awaiting cb at this time. Have made Rosita Graham RN aware of this.
--- NOTE | 2020-06-17 20:04 | PC.NURSE ---
found pt on RA sats were 98%
--- NOTE | 2020-06-17 21:58 | PC.NURSE ---
New medication for patient Metoprolol 50 mg QHS. This is a patient regular medication. HR 114
[2020-06-18] VITALS: BP 123/67; PULSE 90; PULSE 94; RESP 24; TEMP 37.3; O2SAT 97
[2020-06-18 04:00] VITALS: BP 123/73; PULSE 81; PULSE 90; RESP 20; TEMP 36.9; O2SAT 96
[2020-06-18 05:00] VITALS: BMI 34.9
--- NOTE | 2020-06-18 05:11 | PC.NURSE ---
Pt pain well controlled throughout the night. Patient still experiencing numbness below L knee. Patient can move LLE, pronation, suppination, up and down, side to side. Patient heart rate WDL. Will continue to monitor
[2020-06-18 06:30] LABS: Basophils % 0.3 % (0.1-2.0); Eosinophils # 0.1 K/mm3 (0.0-0.4); Hematocrit 36.7 % (42.0-52.0); Hemoglobin 12.2 g/dL (14.1-18.0); Lymphocytes # 1.5 K/mm3 (0.7-4.5); Lymphocytes % 16.1 % (10-50); Mean Corpuscular HGB Conc 33.2 g/dL (31.8-35.4); Mean Corpuscular Hemoglobin 29.5 pg (27.0-31.2); Mean Corpuscular Volume 88.9 fl (80-94); Mean Platelet Volume 7.9 fl (7.4-10.4); Monocytes # 0.9 K/mm3 (0.1-1.0); Monocytes % 9.4 % (1.7-9.3); Neutrophils # 6.9 K/mm3 (1.8-7.8); Neutrophils % 73.2 % (37.0-80.0); Platelet Count 203 K/mm3 (142-424); Red Blood Count 4.12 M/mm3 (4.60-6.20); Red Cell Distribution Width 13.6 % (11.5-17.5); White Blood Count 9.4 K/mm3 (4.8-10.8)
[2020-06-18 06:33] LABS: Chloride 105 mmol/L (98-107)
[2020-06-18 06:34] LABS: Potassium 4.4 mmoL/L (3.5-5.1); Sodium 139 mmol/L (136-145)
[2020-06-18 06:36] LABS: Alanine Aminotransferase 32 U/L (12-78); Alkaline Phosphatase 72 U/L (38-126); Aspartate Amino Transferase 41 U/L (17-59); Bilirubin,Total 0.9 mg/dl (0.2-1.3); Blood Urea Nitrogen 7 mg/dl (9-20); Creatinine Clearance Estimated 188 mL/min (50-200); Estimated Glomerular Filt Rate 99 ml/min (>60); GFR (African American) 120 ML/MIN (>60)
[2020-06-18 06:37] LABS: Albumin Level 3.7 g/dl (3.5-5.0); Albumin/Globulin Ratio 1.5 (1.1-1.8); Anion Gap 7.4 mEq/L (5-15); Calcium 8.9 mg/dl (8.4-10.2); Carbon Dioxide 31 mmol/L (22.0-30.0); Globulin 2.4 g/dL (1.3-3.2); Glucose 108 mg/dl (74-100); Total Protein,Serum 6.1 g/dl (6.3-8.2)
[2020-06-18 07:25] VITALS: BP 128/72; PULSE 81; RESP 18; TEMP 37; O2SAT 96
--- NOTE | 2020-06-18 07:56 | HMH.PHAINT ---
MEDICATION RECONCILIATION COMPLETED ON PATIENT USING EXTERNAL FILL HISTORY FROM PHARMACY AND LIST FROM MD OFFICE. -EMILY ATWOODD
[2020-06-18 08:00] VITALS: PULSE 90
--- NOTE | 2020-06-18 09:47 | HMH.PTEV ---
Physical Therapy Evaluation Rehab PT IP Evaluation Start: 06/17/20 13:16 Freq: ONCE Status: Active Protocol: Document 06/18/20 09:00 MARIA DEL ROSARIO (Rec: 06/18/20 09:46 MARIA DEL ROSARIO [id number]) Subjective/History History History The patient is a 29M who was admitted for 23 hours observation for pain control and physical therapy gait training after left flatfoot reconstruction. Patient has a history of an aortic valve replacement with a stroke after surgery. Patient previously had medical and cardiac clearance by Dr. Castillo and Dr. WASHINGTON. Patient is to be on anticoagulant therapy postoperatively. Patient denies pain currently. He denies nausea vomiting, fever chills, shortness of breath or chest pain. Subjective Subjective No complaints from pt Rehab PT IP Eval Objective Appearance Patient Behavior Appropriate,Cooperative Patient Orientation Person,Place,Time Difficulty following instructions none Speech Pattern Clear,Appropriate Ambulation Patient Able to Ambulate Yes Ambulation Observation IP General Gait Pattern Observation Decrease Weight Bear (L) Ambulation Distance (feet) 10 Ambulation Assistive Device Rolling Walker Ambulation Ability Independent,Supervision/Stand by Balance Ability to Arise Able, uses arms to help Sitting Balance Steady, safe Standing Balance Unsteady Dynamic Sitting Balance Ability Normal Dynamic Standing Balance Ability Fair Transfers Bed Transfer Ability Independent Chair Transfer Ability Independent Sit to Stand Bed Transfer Ability Independent Sit to Stand Chair Transfer Ability Independent ROM LLE PT ROM Status ABN Abnormal ROM Comment casted ankle/foot MMT LLE PT MMT ABN Abnormal MMT Grade pt stilll has effects of nerve block Rehab PT IP prob,goals,plan Problems Date of Evaluation: 06/18/20 PT IP Problems Gait Rehab Potential Rehab Potential Innapropriate for Skilled Therapy Equipment Needs Assistive Devices Axillary Crutches Discharge Plan PT Discharge Sofy
== END 2020-06-18 10:50 | disposition home or self-care (01) ==
LOC: 2ND 13:30
PROVIDERS: Admitting Provider Podiatrist; PCP Internal Medicine Adolescent Medicine; Visit Provider Podiatrist
PROC: (CPT 28735; principal; 2020-06-17 07:30)
DX: M21.42 Flat foot [pes planus] (acquired), left foot (principal); M25.572 Pain in left ankle and joints of left foot; M19.072 Primary osteoarthritis, left ankle and foot; M25.872 Other specified joint disorders, left ankle and foot; M62.472 Contracture of muscle, left ankle and foot; Z95.2 Presence of prosthetic heart valve; Z79.899 Other long term (current) drug therapy; Z79.82 Long term (current) use of aspirin
CPT/HCPCS: 28735; 28715; 27626; 28116; 27687; 36415; 73610; 73620; 73630; 73650; 76000; 80053; 81001; 85025; C1713; C1734; C1762; G0378; J0131; J2405; Q4211

== ENCOUNTER → 2020-07-02 10:39 | Outpatient (CLI) | payer BC, SELFPAY ==
--- NOTE | 2020-07-02 10:48 | XR_ITS ---
PROCEDURE: XR FOOT WT BEARING LT 3V CLINICAL INDICATION: postop Follow-up surgery COMPARISON: CR XR FOOT WT BEARING RT 3V from 03/10/2020 CR XR FOOT WT BEARING LT 3V from 03/10/2020 CR XR ANKLE LT MIN 3V from 06/17/2020 CR XR FOOT LT MIN 3V from 06/17/2020 CR XR FOOT LT 2V from 06/17/2020 FINDINGS: Overlying cast obscures fine bony detail. Post surgical changes are present with a talocalcaneal, talonavicular, and calcaneocuboid fixation. There remains good alignment with no significant change noted. Other findings:None. IMPRESSION: Status post internal fixation with no significant change Dictated by: Anderson Cristina MD 07/02/2020 13:01 Anderson Cristina MD in [place] 07/02/2020 13:01
== END ==
PROVIDERS: PCP Internal Medicine Adolescent Medicine; Visit Provider Podiatrist
DX: Z98.890 Other specified postprocedural states (principal)
CPT/HCPCS: 73630

== ENCOUNTER → 2020-07-28 09:34 | Outpatient (CLI) | payer BC, SELFPAY ==
--- NOTE | 2020-07-28 09:37 | XR_ITS ---
PROCEDURE: XR FOOT WT BEARING LT 3V CLINICAL INDICATION: postop COMPARISON: CR XR FOOT WT BEARING LT 3V from 03/10/2020 CR XR FOOT LT MIN 3V from 06/17/2020 CR XR FOOT LT 2V from 06/17/2020 CR XR FOOT WT BEARING LT 3V from 07/02/2020 FINDINGS: Postsurgical changes are noted with internal fixation of the talocalcaneal, talonavicular and calcaneocuboid fixation. The rest of the tarsals, metatarsals and phalanges demonstrate no focal abnormality. No acute fractures or dislocations. Bone density is otherwise unremarkable. No significant soft tissue abnormality is noted. IMPRESSION: Postsurgical changes with internal fixation. No acute abnormality. Dictated by: Opal Mehta 07/28/2020 11:34 Opal Mehta in [place] 07/28/2020 11:34
== END ==
PROVIDERS: PCP Internal Medicine Adolescent Medicine; Visit Provider Podiatrist
DX: Z98.890 Other specified postprocedural states (principal); M21.42 Flat foot [pes planus] (acquired), left foot; T81.41XA Infection following a procedure, superficial incisional surgical site, initial encounter; R60.9 Edema, unspecified
CPT/HCPCS: 73630

== ENCOUNTER → 2020-09-14 10:18 | Outpatient (CLI) | payer BC, SELFPAY ==
--- NOTE | 2020-09-14 10:20 | XR_ITS ---
PROCEDURE: XR CALCANEUS LT MIN 2V CLINICAL INDICATION: post-op COMPARISON: CR XR CALCANEUS LT MIN 2V from 06/17/2020 CR XR FOOT WT BEARING LT 3V from 07/28/2020 CR XR FOOT WT BEARING LT 3V from 09/14/2020 FINDINGS: S/p talocalcaneal fusion, calcaneocuboid fusion, and talonavicular fusion. Good alignment with no change in bony hardware. The joint space at the talonavicular region and at the calcaneocuboid region appear to be fusing with some residual joint space noted at the calcaneocuboid region with a bone graft at that area. Talocalcaneal joint space appears fused. No evidence of hardware malfunction. IMPRESSION: Postoperative changes as described above Dictated by: Anderson Cristina MD 09/14/2020 12:19 Anderson Cristina MD in [place] 09/14/2020 12:19
== END ==
PROVIDERS: PCP Internal Medicine Adolescent Medicine; Visit Provider Podiatrist
DX: Z98.890 Other specified postprocedural states (principal); M21.42 Flat foot [pes planus] (acquired), left foot; M25.572 Pain in left ankle and joints of left foot
CPT/HCPCS: 73630; 73650

== ENCOUNTER 2020-10-15 16:00 | Outpatient (RCR) | payer BC, SELFPAY ==
--- NOTE | 2020-08-20 15:19 | HMH.PTOPEV ---
PT Outpatient Evaluation Rehab PT Outpatient Evaluation Start: 08/20/20 14:29 Freq: Status: Active Protocol: Document 08/20/20 14:58 OSITO (Rec: 08/20/20 15:19 ADYJERZY [id number]) Electronically Signed By Toby Gutiérrez, PT 08/20/20 14:58 Outpatient Therapy Subjective History Subjective History Patient is a 29 year old male presenting to outpatient PT with reports of chronic B foot pain L>R. I've had foot pain my entire life. Patient underwent ORIF to correct severe pes planus 06/17/20. Most recent imaging indicates fusion of subtalar, talonavicular and calcaneocuboid joints. Comorbidites include hx of heart surgery x 2 for aortic valve replacement, HTN and HL. Chief Complaint Pain,Stiff,Swelling, Paresthesia Symptom Type Burning Symptoms Relieved By Rest/Positioning,Ice,Elevation Symptoms Aggravated By Standing,Physical Activity, Walking Prior Functional Limitations Standing,Walking Current Functional Limitations Standing,Recreation Activity, Walking,Stairs,Balance Symptom Description Intermittent Level of pain today (0-10) 0 Pain scale - at its best (0-10) 0 Pain scale - at its worst (0-10) 4 Ankle/Foot Eval Gait Observation General Gait Pattern Observation Antalgic Gait,Decrease Weight Bear (L) Palpation Tenderness left Ankle/Foot Palpation Findings Tenderness Ankle/Foot Palpation Overall Comment calcaneus 3/4 ROM Ankle/Foot Dorsiflexion w/Knee Extended 8 Active Range Motion (degrees) Ankle/Foot Dorsiflexion w/Knee Extended 10 Passive Range (degrees) Ankle/Foot Plantar Flexion Active Range 42 of Motion (degrees) Ankle/Foot Plantar Flexion Passive Range 48 of Motion (degrees) Ankle/Foot Eversion Active Range of 8 Motion (degrees) Ankle/Foot Eversion Passive Range of 8 Motion (degrees) Ankle/Foot Inversion Active Range of 10 Motion (degrees) Ankle/Foot Inversion Passive Range of 14 Motion (degrees) Ankle/Foot ROM Limitations Soft Tissue Tightness,Bony Restriction Great Toe ROM Reason Not Measured Within Functional Limits MMT Ankle Dorsiflexion Strength Grade 4- Good- Ankle Plantarflexion Strength Grade 4- Good- Foot Eversion Strength Grade 3+ Fair+
--- NOTE | 2020-09-15 11:04 | HMH.RHREAS ---
Rehab Reassessment Rehab OP Re-assessment Start: 09/15/20 10:56 Freq: Status: Active Protocol: Document 09/15/20 10:56 ANGELAENRIQUE (Rec: 09/15/20 11:03 ANGELAMARCELJERZY [id number]) Electronically Signed By Toby Gutiérrez, PT 09/15/20 10:56 Rehab Re-assessment Subjective Subjective Patient reports 70% improvement since start of care. Objective Objective Notes AROM: DF-5; PF 28; INV 12; EV 5 PROM: DF 4; PF 35; INV 25; EV 11 MMT: DF/PF WNL; INV/EV 4/5 Pain: 3/10 today; 7/10 at worst over past week. Assessment Progress Assessment Progressing as Expected Assessment Notes Patient is tolerating progression of Rx well. Objective improvements as noted above. Significant difference between AROM and PROM indicating motor control dysfuntion. Functional limitations persist with and prolonged standing/ambulatory activities. Patient goals met STG 2 Goals Not Met STG 1; LTG's Revised Goals NA Plan Plan 2x/week Frequency of Therapy 2x/week Duration of therapy 4 weeks Time and Billing Re-Eval Time 15 Re-Eval Billing Units 1 PHYSICIAN CERTIFICATION: I certify the specified therapy services for oCry Gibbs are required, authorized, and reviewed every 30 days.
== END 2020-10-15 16:05 | disposition home or self-care (01) ==
LOC: PT 16:00
PROVIDERS: PCP Internal Medicine Adolescent Medicine; Visit Provider Podiatrist
DX: M25.572 Pain in left ankle and joints of left foot (principal); M21.42 Flat foot [pes planus] (acquired), left foot; Z98.890 Other specified postprocedural states; G89.18 Other acute postprocedural pain
CPT/HCPCS: 97010; 97014; 97110; 97112; 97116; 97163; 97164; 97530; G0283

== ENCOUNTER → 2020-11-24 15:11 | Outpatient (CLI) | payer BC, SELFPAY ==
--- NOTE | 2020-11-24 15:13 | CA_ITS ---
APPROVED REPORT EXAM: Comprehensive 2D, Doppler, and color-flow Echocardiogram Retail Sales Advisor: Chhaya Drummond RT(R) Ht: 5 ft 10 in Wt: 236lbs BSA: 2.24 BP: 124/77 mmHg Indications: cp, bioprosthetic AV, Abn EKG, GERD, obesity 2D Dimensions LVOT 2.26 cm (M/F) 1.5-2.5 LA Volume 53.60 mL LA Volume Index 23.92 mL/m2 (M/F) 16-34 M-Mode Dimensions RVDd 3.06 cm (0.9-2.6) LA Diam 4.76 cm (1.9-4.0) LVDd 4.67 cm (3.5-5.7) Ao Diam 2.10 cm (2.0-3.7) LVDs 3.42 cm (3.5-5.7) IVSd 1.37 cm (0.6-1.1) PWd 1.01 cm (0.6-1.1) EF (Teich) 52.30% FS 26.80% EDV (Teich) 100.80 mL ESV (Teich) 48.10 mL LV Diastology E Decel Time 220.00 (160-240 msec) E/A Ratio 1.6 MED E' 6.70 (< 7 cm/sec) E'/MED E' Ratio 13.40 (>14) LAT E' 14.80 (<10 cm/sec) E/LAT E' Ratio 6.07 (>14) Aortic Valve LVOT Max 131.00 (70-110 cm/s) LVOT VTI 29.20 cm AoV Peak Mario. 314.00 (50-130 cm/s) AO Peak GR. 39.50 mmHg AO Mean GR. 19.30 (<5 mmHg) AO VTI 58.17 (18-25 cm) KANCHAN (VTI) 2.01 (2.5-4.5 cm2) Mitral Valve MV E Max Mario. 90.00 (40-130 cm/s) MV A Velocity 56.00 (40-130 cm/s) E/A Ratio 1.60 MV Decel. Time 220.00 (160-240 ms) MV PHT 64.00 ms Left Ventricle Left atrium is mildly enlarged, left ventricle is normal size, visually estimated ejection fraction 55% with no regional wall motion abnormality, diastolic parameters are within normal range. Right Ventricle Right atrium and right ventricle are normal size and contractility. Aortic Valve There is bioprosthetic valve noted in the aortic position, the valve is well-seated, the mean gradient across valve is 20 mmHg, the valve area is 1.8 cm???, there is no aortic insufficiency. Mitral Valve Mitral valve grossly normal, there is trace mitral regurgitation. Tricuspid Valve Tricuspid valve grossly normal, there is trace tricuspid regurgitation tricuspid regurgitation jet velocity is inadequate for calculation of the right ventricular systolic pressure. Pulmonic Valve Pulmonic valve is poorly visualized. Great Vessels Aortic root is normal size. Pericardium No significant pericardial effusion noted. Conclusion 1. Normal left ventricular size, preserved left ventricular systolic function, visually estimated ejection fraction 55% with no regional wall motion abnormality, diastolic parameters are within normal range. 2. Bioprosthetic valve in the aortic position, mean gradient across valve is 20 mmHg, valve area is 1.8 cm???. There is no aortic insufficiency. 3. No significant pericardial effusion noted. Electronically signed by : Wilmer Amador MD 11/24/2020 19:18:21
== END ==
PROVIDERS: PCP Internal Medicine Adolescent Medicine; Visit Provider Physician Assistant
DX: R07.89 Other chest pain (principal); R94.31 Abnormal electrocardiogram [ECG] [EKG]; E66.9 Obesity, unspecified; Z95.3 Presence of xenogenic heart valve
CPT/HCPCS: 93306

== ENCOUNTER → 2020-11-30 08:09 | Outpatient (CLI) | payer BC, SELFPAY ==
--- NOTE | 2020-11-30 08:19 | US_ITS ---
PROCEDURE: US GALLBLADDER CLINICAL INDICATION: chest pain COMPARISON: No exams were available for comparison FINDINGS: Pancreas: Unremarkable/Not well seen Liver: Unremarkable. There is appropriate direction of blood flow within a non dilated portal vein. Right kidney: Unremarkable appearing. No hydronephrosis. Gallbladder: No shadowing stones are evident. There are 2 small hyperechoic foci within the upper portion of the gallbladder which may be due to small polyps. No gallbladder wall thickening, pericholecystic fluid, or biliary ductal dilatation is evident. IMPRESSION: Two small gallbladder polyps otherwise negative right upper quadrant ultrasound Dictated by: Anderson Cristina MD 11/30/2020 15:51 Anderson Cristina MD in [place] 11/30/2020 15:51
== END ==
PROVIDERS: PCP Internal Medicine Adolescent Medicine; Visit Provider Physician Assistant
DX: R07.89 Other chest pain (principal); R94.31 Abnormal electrocardiogram [ECG] [EKG]; E66.9 Obesity, unspecified; Z95.3 Presence of xenogenic heart valve
CPT/HCPCS: 76705

== ENCOUNTER → 2021-01-28 08:05 | Outpatient (CLI) | payer BC, SELFPAY ==
--- NOTE | 2021-01-28 08:20 | XR_ITS ---
PROCEDURE: XR CALCANEUS RT MIN 2V CLINICAL INDICATION: PAIN COMPARISON: No exams were available for comparison FINDINGS: No fracture or dislocation. No lytic or blastic change. There is normal mineralization. The joint spaces are well-preserved. No significant degenerative/arthritic changes. No erosive changes evident. Other findings:Prominent posterior talar process IMPRESSION: Prominent posterior talar process otherwise negative Dictated by: Anderson Cristina MD 01/28/2021 15:13 Anderson Cristina MD in [place] 01/28/2021 15:13
--- NOTE | 2021-01-28 08:20 | XR_ITS ---
PROCEDURE: XR ANKLE WT BEARING RT MIN 3V CLINICAL INDICATION: PAIN COMPARISON: CR ANKR3 ANKLE-RT-3 VIEWS from 11/13/2015 CR XR ANKLE LT MIN 3V from 06/17/2020 FINDINGS: Bones: No fracture or dislocation. No lytic or blastic change. There is normal mineralization. Joints: The joint spaces are well-preserved. No significant degenerative/arthritic changes. No erosive changes evident. Other findings:There is a prominent posterior talar process. This has increased in size since 11/13/2015. IMPRESSION: Prominent posterior talar process otherwise negative Dictated by: Anderson Cristina MD 01/28/2021 15:10 Anderson Cristina MD in [place] 01/28/2021 15:10
--- NOTE | 2021-01-28 08:20 | XR_ITS ---
PROCEDURE: XR ANKLE WT BEARING LT MIN 3V XR left foot three views XR left calcaneus two views CLINICAL INDICATION: PAIN COMPARISON: CR ANKR3 ANKLE-RT-3 VIEWS from 11/13/2015 CR XR ANKLE LT MIN 3V from 06/17/2020 CR XR CALCANEUS LT MIN 2V from 01/28/2021 CR XR FOOT WT BEARING LT 3V from 01/28/2021 FINDINGS: Left ankle: The splint has been removed. Status post fusion the talocalcaneal joint and talonavicular and and calcaneal cuboid joint. The joint spaces appear fused. There is good alignment. No acute fracture or dislocation is evident. The ankle mortise is preserved and the talus dome an unremarkable appearance. Tibiotalar joint space is preserved. Left calcaneus: No fracture or dislocation. Postsurgical changes. Status post fusion of the subtalar joint. Left foot: No acute fracture or dislocation. Good alignment status post hindfoot fusion. Pes planus IMPRESSION: Postsurgical changes as described above. No acute finding with no significant change Dictated by: Anderson Cristina MD 01/28/2021 15:05 Anderson Cristina MD in [place] 01/28/2021 15:05
--- NOTE | 2021-01-28 08:20 | XR_ITS ---
PROCEDURE: XR FOOT WT BEARING RT 3V CLINICAL INDICATION: PAIN COMPARISON: CR XR FOOT LT MIN 3V from 06/17/2020 CR XR FOOT WT BEARING LT 3V from 07/02/2020 CR XR FOOT WT BEARING LT 3V from 07/28/2020 CR XR FOOT WT BEARING LT 3V from 09/14/2020 CR XR ANKLE WT BEARING RT MIN 3V from 01/28/2021 FINDINGS: No fracture or dislocation. No lytic or blastic change. There is normal mineralization. The joint spaces are well-preserved. No significant degenerative/arthritic changes. No erosive changes evident. Other findings:Pes planus. There is inferior subluxation the navicular at the talonavicular joint by approximately 5 mm. There is a prominent posterior talar process IMPRESSION: Pes planus with inferior subluxation of the navicular at the talonavicular joint. Dictated by: Anderson Cristina MD 01/28/2021 15:09 Anderson Cristina MD in [place] 01/28/2021 15:09
== END ==
PROVIDERS: PCP Internal Medicine Adolescent Medicine; Visit Provider Podiatrist
DX: M79.672 Pain in left foot (principal); M25.572 Pain in left ankle and joints of left foot; M79.671 Pain in right foot; M25.571 Pain in right ankle and joints of right foot
CPT/HCPCS: 73610; 73630; 73650

== ENCOUNTER → 2021-02-06 08:19 | Outpatient (CLI) | payer BC, SELFPAY ==
--- NOTE | 2021-02-06 08:21 | MR_ITS ---
PROCEDURE INFORMATION: Exam: MR Right Lower Extremity Joint Without and With Contrast; Ankle Exam date and time: 02/06/2021 8:21 AM Age: 30 years old Clinical indication: Patient HX: Right ankle pain, flatfooted, surgical planning; Additional info: Right ankle pain, surgical planning TECHNIQUE: Imaging protocol: MR of the Right lower extremity without and with contrast. Exam focused on the ankle. Contrast material: PROHANCE; Contrast volume: 20 ml; Contrast route: IV; COMPARISON: 1. CR XR FOOT WT BEARING RT 3V 01/28/2021 8:22:32 AM 2. LEAJW/ORT MRI-LOW EXT ANY JOINT W/O-RT 05/24/2016 4:11 PM 3. CR XR ANKLE WT BEARING RT MIN 3V 01/28/2021 8:22 AM FINDINGS: Bones and cartilage: Bone marrow edema involving the talus and calcaneus has decreased compared with 2017. Mild bone marrow edema remains present and is most prominent along the lateral aspect of the subtalar joint with full-thickness cartilage damage suspected to involve approximately a 5 mm region at the level of the angle of Gissane (series 6/image 18). A large posterior process of the talus is present with an adjacent os trigonum with surrounding fluid and minimal bone marrow edema. The flexor hallucis longus tendon is located within a focal concavity in the posterior aspect of the talus, which predisposes to impingement (series 4/image 20). The longitudinal arch of the foot is severely flattened. A prominent dorsal osteophyte along the talar head is unchanged. There is no evidence of developmental tarsal coalition. The hindfoot has a valgus tilt. There is no evidence of osteomyelitis. Joint spaces: A moderate effusion involves the ankle joint. LIGAMENTS: Distal tibiofibular syndesmosis: Unremarkable. No tear. Anterior talofibular ligament: Grossly intact. Posterior talofibular ligament: Mildly thickened. Calcaneofibular ligament: Grossly intact. Deltoid ligament complex: Unremarkable. No tear. TENDONS: Flexor tendons of foot: Unremarkable as visualized. Tibialis posterior tendon: Mild tenosynovitis involves the tibialis posterior tendon. Peroneal tendons: Mild tenosynovitis involves the peroneal tendon sheath. Extensor tendons of foot: Unremarkable as visualized. Tibialis anterior tendon: Unremarkable. Achilles tendon: Unremarkable as visualized. Tarsal canal (Sinus tarsi): Abnormal signal intensity material nearly obliterates the fat in the sinus tarsi, which is unchanged and suggests sinus tarsi syndrome. Tarsal tunnel: Unremarkable. Muscles: Unremarkable. Soft tissues: Agta-pr-cvalagsp soft tissue edema involves the hindfoot. Plantar fascia: Unremarkable. IMPRESSION: 1. Severe pes planus. 2. Hindfoot valgus. 3. 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 4. Probable focal full-thickness cartilage damage at the level of the angle of Gissane. 5. Large posterior process of the talus with adjacent os trigonum. 6. Flexor hallucis longus located in a small bony concavity in the posterior talus which predisposes to impingement. 7. Mild tenosynovitis of the tibialis posterior and peroneal tendons. 8. Moderate ankle joint effusion.
== END ==
PROVIDERS: PCP Internal Medicine Adolescent Medicine; Visit Provider Podiatrist
DX: M21.41 Flat foot [pes planus] (acquired), right foot (principal); M76.821 Posterior tibial tendinitis, right leg; M76.822 Posterior tibial tendinitis, left leg; M25.571 Pain in right ankle and joints of right foot
CPT/HCPCS: 73723; A9576

== ENCOUNTER → 2021-03-05 10:25 | Outpatient (CLI) | payer BC, SELFPAY ==
--- NOTE | 2021-03-05 10:29 | XR_ITS ---
PROCEDURE: XR CHEST 2V CLINICAL HISTORY: HX OF OPEN HEART SURGERY, PRE-OPERATIVE COMPARISON: CT CHESTW CT chest w con from 02/14/2018 CR CXR2V XR chest 2V from 05/03/2018 CR XR CHEST 2V from 05/25/2020 FINDINGS: Status post median sternotomy with aortic valve replacement. Normal heart size. No evidence of CHF. The lungs are clear without infiltrates, suspicious nodules, or pleural effusions. No acute bony abnormalities. IMPRESSION: Prior aortic valve replacement. No acute finding. Dictated by: Anderson Cristina MD 03/05/2021 15:26 Anderson Cristina MD in [place] 03/05/2021 15:26
--- NOTE | 2021-03-05 10:46 | ECG_ITS ---
APPROVED REPORT Exam: Resting ECG HR:71 bpm ECG Measurements Heart Rate 71 AXES WY 168 P 36 QRSd 92 QRS 47 QT 370 T 34 QTc 402 Conclusion Normal sinus rhythm with sinus arrhythmia Normal ECG Electronically signed by : Raz Castillo MD 03/06/2021 06:14:38
== END ==
PROVIDERS: PCP Internal Medicine Adolescent Medicine; Visit Provider Podiatrist
DX: Z01.810 Encounter for preprocedural cardiovascular examination (principal)
CPT/HCPCS: 71046; 93005

== ENCOUNTER → 2021-03-08 13:05 | Outpatient (CLI) | payer BC, SELFPAY ==
[2021-03-08 14:59] LABS: Chloride 102 mmol/L (98-107); Sodium 140 mmol/L (136-145)
[2021-03-08 15:02] LABS: Alanine Aminotransferase 18 U/L (12-78); Albumin Level 4.8 g/dl (3.5-5.0); Albumin/Globulin Ratio 1.7 (1.1-1.8); Alkaline Phosphatase 108 U/L (38-126); Aspartate Amino Transferase 25 U/L (17-59); Bilirubin,Total 0.2 mg/dl (0.2-1.3); Blood Urea Nitrogen 12 mg/dl (9-20); Calcium 9.4 mg/dl (8.4-10.2); Carbon Dioxide 28 mmol/L (22.0-30.0); Estimated Glomerular Filt Rate 132 ml/min (>60); GFR (African American) 159 ML/MIN (>60); Globulin 2.8 g/dL (1.3-3.2); Glucose 93 mg/dl (74-100); Total Protein,Serum 7.6 g/dl (6.3-8.2)
[2021-03-08 15:36] LABS: Basophils # 0.1 K/mm3 (0-0.2); Basophils % 0.7 % (0.1-2.0); Eosinophils # 0.1 K/mm3 (0.0-0.4); Eosinophils % 1.4 % (0.1-12.0); Hematocrit 45.8 % (42.0-52.0); Hemoglobin 15.4 g/dL (14.1-18.0); Lymphocytes # 1.9 K/mm3 (0.7-4.5); Lymphocytes % 26.9 % (10-50); Mean Corpuscular HGB Conc 33.6 g/dL (31.8-35.4); Mean Corpuscular Hemoglobin 30.5 pg (27.0-31.2); Monocytes # 0.6 K/mm3 (0.1-1.0); Monocytes % 7.6 % (1.7-9.3); Neutrophils # 4.5 K/mm3 (1.8-7.8); Neutrophils % 63.3 % (37.0-80.0); Platelet Count 269 K/mm3 (142-424); Red Blood Count 5.03 M/mm3 (4.60-6.20); Red Cell Distribution Width 13.1 % (11.5-17.5); White Blood Count 7.2 K/mm3 (4.8-10.8)
[2021-03-08 16:42] LABS: 25-OH Vitamin D, Total 24.3 ng/mL (30-100)
== END ==
PROVIDERS: Visit Provider Podiatrist
DX: Z01.812 Encounter for preprocedural laboratory examination (principal); M21.41 Flat foot [pes planus] (acquired), right foot; E55.9 Vitamin D deficiency, unspecified
CPT/HCPCS: 36415; 80053; 82306; 85025

== ENCOUNTER → 2021-03-09 15:08 | Outpatient (CLI) | payer BC, SELFPAY | PROVIDERS: Visit Provider Podiatrist | DX: Z01.812 Encounter for preprocedural laboratory examination (principal); Z11.52 Encounter for screening for COVID-19; M21.41 Flat foot [pes planus] (acquired), right foot | CPT/HCPCS: C9803; U0003; U0005 ==

== ENCOUNTER 2021-03-10 12:54 | Observation (INO) | payer BC, SELFPAY ==
[2021-03-05 12:59] VITALS: BMI 32.3
[2021-03-10] VITALS (19 sets, daily range): BP systolic 115–141; BP diastolic 59–90; PULSE 79–103; RESP 16–18; TEMP 36.3–43; O2SAT 92–99; BMI 33.3
[2021-03-10 06:34] LABS: Coronavirus 19, PCR Not Detected (NotDetected); Influenza A, PCR Not Detected (NotDetected); Influenza B, PCR Not Detected (NotDetected)
--- NOTE | 2021-03-10 07:46 | P.PN_ITS ---
[facility] Anesthesia Checklist - Patient Identification Patient Identification: Arm Band - Structural Data Admitted From: Home Planned Operative Procedure/s: Arthrodesis triple ankle R side Consent for Planned Operative Procedure(s) Verified: Yes - NPO Status Verified Time NPO: 00:00 - Additional verifications Anesthesia Reactions: No Hx Blood Transfusions: No Blood Transfusion Reaction: No - Airway Assessment C-Spine Mobility Assessed: Yes TMJ Mobility Assessed: Yes Dentition: Good Dentition - Neurological Assessment Level of Consciousness: Awake Hx Seizures: No Numbness or tingling in extremities: No - Anesthesia Plan Anesthesia Risk discussed: Yes Anesthesia Plan: Verified ASA Class: II Anesthesia Type: General w/block [facility] History I have reviewed the patient's past medical history: Yes Medical History: Reports:: Congenital Heart Disease, Gastroesophageal Reflux Disease(GERD), Valvular Heart Disease Denies:: Cancer, Diabetes Mellitus Type 1, Diabetes Mellitus Type 2, Internal Pacemaker, MRSA, Seizures *Have you ever received a pneumonia vaccine?: No *Have you received a flu vaccine this season?: No Other Medical History: Denies: Blood Transfusion Reaction Anesthesia experience/problems:: None Other Surgeries: Yes: No Previous Surgery, Cardiac Surgery (Mechanical aortic valve APR 2018 then pig aortic valve DEC 2018.). No: Pacemaker Amputation: No Fractures: No - *Social History Last grade of school completed: Some college Smoking Status: Never smoker Alcohol Intake: current Alcohol Intake Frequency:: holidays/special occasions only Substance Use Type: denies use *Occupational Status:: employed Housing: house Household Members: family *Travel in the last 8 weeks: None Family Hx:: Cancer, Heart Attack
--- NOTE | 2021-03-10 08:52 | SUR.OPER ---
0819 family updated regarding start of procedure
--- NOTE | 2021-03-10 11:56 | SUR.OPER ---
1022 family updated 1156 family updated
--- NOTE | 2021-03-10 13:12 | XR_ITS ---
PROCEDURE: XR FOOT RT 2V CLINICAL INDICATION: ARTHRODESIS TRIPLE RT FOOT COMPARISON: CR XR FOOT WT BEARING LT 3V from 07/28/2020 CR XR FOOT WT BEARING LT 3V from 09/14/2020 CR XR FOOT WT BEARING LT 3V from 01/28/2021 CR XR FOOT WT BEARING RT 3V from 01/28/2021 FINDINGS: Status post triple arthrodesis of the right foot with arthrodesis of the talocalcaneal, calcaneocuboid, talonavicular navicular and navicular cuneiform joints with good alignment. IMPRESSION: Status post triple arthrodesis with fluoroscopic assistance Dictated by: Anderson Cristina MD 03/10/2021 14:00 Anderson Cristina MD in [facility] 03/10/2021 14:00
--- NOTE | 2021-03-10 13:27 | P.PN_ITS ---
[facility] Anesthesia Record Part I Intake, IV Amount: 1,800 Estimated blood loss (mL): 30 Urine output (mL): 250 Blood Pressure: 116/59 SaO2: 92 Pulse Rate: 82 Respiratory Rate: 16 Temperature: 98.3 F Patient is:: Drowsy, Oral/Nasal airway Stable to PACU at:: 13:23
--- NOTE | 2021-03-10 13:34 | XR_ITS ---
PROCEDURE: XR CALCANEUS RT MIN 2V CR XR ANKLE RT 2V CR XR FOOT RT 2V CLINICAL INDICATION: Follow-up arthrodesis COMPARISON: CR XR ANKLE RT 2V from 03/10/2021 CR XR FOOT RT 2V from 03/10/2021 FINDINGS: Studies obtained through a cast. Has been arthrodesis the talocalcaneal joint with 2 lag screws, calcaneocuboid joint with a bone staple, talonavicular joint with a bone staple, and navicular cuneiform joints with 2 bone primo. There is good alignment. IMPRESSION: Good alignment status post arthrodesis as described above Dictated by: Anderson Cristina MD 03/10/2021 14:03 Anderson Cristina MD in OV 03/10/2021 14:03
--- NOTE | 2021-03-10 14:04 | SUR.PHASEI ---
1353- detailed report given to dora del castillo on medsur floor. 1354- pt left in stable condition with dora del castillo
--- NOTE | 2021-03-10 14:33 | HMH.HPDC ---
General - General Admission date:: 03/10/21 Discharge date: 03/11/21 *Admission Date: 03/10/21 *Chief complaint: Right post op flatfoot recon *History of present illness: Patient is a 30-year-old male was admitted after right flatfoot reconstruction 03/10/2021. No Intra-Op complications noted. Patient had similar surgery on the left foot which required 23-hour observation stay. He was admitted previously for blood pressure metoprolol management by his PCP Dr. Castillo. [facility] History I have reviewed the patient's past medical history: Yes Medical History: Reports:: Congenital Heart Disease, Gastroesophageal Reflux Disease(GERD), Valvular Heart Disease Denies:: Cancer, Diabetes Mellitus Type 1, Diabetes Mellitus Type 2, Internal Pacemaker, MRSA, Seizures *Have you ever received a pneumonia vaccine?: No *Have you received a flu vaccine this season?: No Other Medical History: Denies: Blood Transfusion Reaction Anesthesia experience/problems:: None Other Surgeries: Yes: No Previous Surgery, Cardiac Surgery (Mechanical aortic valve APR 2018 then pig aortic valve DEC 2018.). No: Pacemaker Amputation: No Fractures: No - *Social History Last grade of school completed: Some college Smoking Status: Never smoker Alcohol Intake: current Alcohol Intake Frequency:: holidays/special occasions only Substance Use Type: denies use *Occupational Status:: employed Housing: house Household Members: family *Travel in the last 8 weeks: None Family Hx:: Cancer, Heart Attack Review of Systems - Review of Systems Review of systems:: pertinent systems reviewed and negative unless documented below - Constitutional Denies chills - Eyes Denies blind spots - ENT Denies abnormal hearing - *Cardiovascular Denies chest pain, Denies shortness of breath - *Respiratory Denies shortness of breath - *Gastrointestinal Denies abdominal pain - *Genitourinary Denies difficulty urinating - *Musculoskeletal Reports deformity (right flatfoot), Denies abnormal walking - Integumentary/Breasts Denies non-healing lesions - *Neurologic Denies abnormal walking - Psychiatric Denies abnormal sleep pattern - Endocrine Denies cold intolerance - Hematologic/Lymphatic Denies easy bleeding - Allergic/Immunologic Denies GI upset with certain foods Exam Vital signs and Labs for Last 24 Hours: Temp Pulse Resp BP Pulse Ox 98.1 F 92 H 16 140/90 93 L 03/10/21 13:53 03/10/21 13:53 03/10/21 13:53 03/10/21 13:53 03/10/21 13:53 Laboratory Results - last 24 hr 03/10/21 06:30: SARS-CoV-2 (PCR) Not detected, Influenza A Untype (PCR) Not detected, Influenza Type B (PCR) Not detected I & O for Last 24 hours: Intake & Output 03/08/21 03/09/21 03/10/21 03/11/21 11:59 11:59 11:59 11:59 Intake Total 1800 / 1800 Balance 1800 / 1800 Weight 232 lb 9 oz - Constitutional no acute distress - *Routine HEENT Exam Head: Present: normocephalic Eye: Present: EOMI, PERRL ENT: Present: mucous membranes moist - *Routine Respiratory Exam Present: CTA bilaterally - *Routine Cardiovascular Exam Present: RRR - *Routine Abdominal Exam Present: soft, normoactive bowel sounds. Absent: tenderness - *Routine Rectal Exam Rectal:: deferred - *Routine Genitalia Exam Genitalia:: deferred - *Routine Skin Exam Present: warm. Absent: erythema, rash - *Routine Neurological Exam Present: alert, oriented X3 - Detailed Lower Extremity Exam Comments: Splint and dressing clean dry and intact to the right lower extremity. Motor function, light touch sensation and strength decreased secondary to regional nerve block. Capillary fill time within normal limits. YANET drain intact. Hospital Course Hospital Course: Patient admitted for 23-hour observation for monitoring during status post prolonged anesthesia, pain control and for blood pressure medical management. Patient resting comfortably. Denies N/V, F/C, SOB/CP. Has incenti
[2021-03-10 14:39] LABS: Microscopic,Cath URINE MICROSCOPIC (MICROSCOPIC)
--- NOTE | 2021-03-10 14:49 | HMH.OPNOTE ---
Date of procedure: 03/10/21 Pre-op Diagnosis:: 1. Acquired pes planus of right foot 2. Tarsal coalition of right foot 3. Right posterior tibial tendon dysfunction (PTTD) 4. Acquired gastroc equinus deformity 5. Sinus tarsi syndrome of right ankle 6. Primary osteoarthritis of right foot 7. Impingement of right ankle joint 8. History of aortic valve replacement with bioprosthetic valve 9. History of mechanical aortic valve replacement 10. Chronic pain of right foot/ankle 11. Obesity (BMI 30.0-34.9) Post-op Diagnosis:: Same Procedure performed:: 1. Right flatfoot reconstruction 2. Right gastroc recession 3. Right tarsal coalition resection 4. Right hindfoot arthrodesis (triple arthrodesis) 5. Right navicular cuneiform arthrodesis 6. Right calcaneal osteotomy - lateral column lengthening 7. Right foot synovectomy 8. Right tibialis anterior and posterior tibial tendon debridement/tenosynovectomy 9. Right application of graft 10. Application of YANET drain 11. Application of posterior splint Surgeon:: Jory Sanchez DPM Burial Agent(s):: Tisha Dodd LINUX SUPPORT ENGINEER:: Marta Ríos Anesthesia: GETA, regional (Right popliteal nerve block) Estimated blood loss (mL): 30 Clinical Note:: Patient is a 30 y/o male who has chronic foot pain. He has had flatfoot all his life. 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 I discussed the condition and etiology of coalition and PTTD with the patient in detail. We discussed how weakness of the PT tendon can cause the arch to collapse, resulting in a flat foot. I explained how over time the flatfoot could lead to arthritis and progression of bunion deformity. Patient has failed conservative care, including modification of shoe gear, modification of activity, strapping/bracing, taping, splints, icing, anti-inflammatory medication, change in shoes/inserts, prefab/custom orthotics, stretching, and physical therapy. We discussed surgical intervention at length. Patient understands post op, he will be NWB 6-8 weeks then transition PPWB 1-2 weeks with physical therapy 6-8 week twice weekly. Due to his work duties, he will need to plan for 12 weeks off. We discussed surgery. Had left flatfoot reconstruction 331/21 with 23 hour observation. Patient is happy with result. Discussed another procedure to increase arch through the NC joint however patient is not having left foot pain and wants to focus on the right foot. All risks and benefits were discussed including but not limited to: damage to blood vessels and nerves, bleeding, infection, wound complications, delayed, mal or non-union of bone, post-traumatic arthritis, need for further surgery, need for removal of implant, failure of implant/hardware, prolonged or permanent swelling of the extremity, prolonged or permanent pain, deformity, CRPS/RSD, DVT/PE, and anesthetic complications. No guarantees were given. All questions fully answered. The patient verbalized understanding and agreed to proceed with surgery. Consent was obtained. Necessary labs and pre-op testing ordered: CBC, BMP, vit D, CXR, covid. Patient has crutches. Recommend RKS. Granted cardiac and medical clearance: Dr. WASHINGTON and Dr. Castillo. DVT ppx recommendations-had Lovenox last surgery. He takes aspirin 81mg now. 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 Last sx: Percocet, Zofran, Motrin, Toradol, Lovenox and Valium. Operative findings:: Significant right flatfoot deformity. There was significant talar head uncovering with exposed talar head medially. The lateral navicular was sclerotic. There was a fibrous coalition noted between the navicular and the calcaneus. There was impingement at the level of the calcaneocuboid joint secondary to the coalition. Calcaneal valgus deformity noted. The posterior tibial tendon was synovitic with hypertrophy noted at the insertion on the navicular. Equinus deformity noted. Arthritic changes noted to
[2021-03-10 15:03] LABS: Appearance,Urine/Cath CLEAR (Clear); Bilirubin,Cath Negative (Negative); Blood, Urine/Cath TRACE-I (Negative); Color,Urine/Cath YELLOW (Yellow); Glucose,Urine/Cath (UA) Negative (Negative); Ketones,Urine/Cath Negative (Negative); Leukocyte Esterase,Cath Negative (Negative); Nitrate,Cath Negative (Negative); PH,Urine/Cath 5.5 (5.0-8.5); Protein,Urine/Cath Negative (Negative); Specific Gravity, Urine/Cath >= 1.030 (1.005-1.030); Urobilinogen,Cath 0.2 EU/dl (0.2)
[2021-03-10 15:29] LABS: Bacteria,Urine/Cath TRACE /lpf; RBC,Urine/Cath Occasional # /hpf (0-3); Squamous Epithelial Ur./Cath Occasional #/hpf (0-5); WBC,Urine/Cath Occasional #/hpf (0-3)
[2021-03-10 21:11] LABS: Basophils % 0.2 % (0.1-2.0); Hematocrit 43.7 % (42.0-52.0); Hemoglobin 13.9 g/dL (14.1-18.0); Lymphocytes # 1.3 K/mm3 (0.7-4.5); Lymphocytes % 6.5 % (10-50); Mean Corpuscular HGB Conc 31.7 g/dL (31.8-35.4); Mean Corpuscular Hemoglobin 30.1 pg (27.0-31.2); Mean Corpuscular Volume 94.8 fl (80-94); Mean Platelet Volume 8.6 fl (7.4-10.4); Monocytes # 1.1 K/mm3 (0.1-1.0); Monocytes % 5.9 % (1.7-9.3); Neutrophils # 16.8 K/mm3 (1.8-7.8); Neutrophils % 87.3 % (37.0-80.0); Platelet Count 267 K/mm3 (142-424); Red Blood Count 4.61 M/mm3 (4.60-6.20); Red Cell Distribution Width 13.6 % (11.5-17.5); White Blood Count 19.2 K/mm3 (4.8-10.8)
[2021-03-10 21:16] LABS: MANUAL DIFFERENTIAL MANUAL DIFFERENTIAL (MANUAL DIFF)
[2021-03-10 21:19] LABS: Chloride 101 mmol/L (98-107); Potassium 4.2 mmoL/L (3.5-5.1); Sodium 137 mmol/L (136-145)
[2021-03-10 21:22] LABS: Alanine Aminotransferase 27 U/L (12-78); Albumin Level 4.1 g/dl (3.5-5.0); Albumin/Globulin Ratio 1.5 (1.1-1.8); Alkaline Phosphatase 91 U/L (38-126); Anion Gap 11.2 mEq/L (5-15); Aspartate Amino Transferase 46 U/L (17-59); Bilirubin,Total 0.3 mg/dl (0.2-1.3); Blood Urea Nitrogen 13 mg/dl (9-20); Carbon Dioxide 29 mmol/L (22.0-30.0); Creatinine Clearance Estimated 160 mL/min (50-200); Estimated Glomerular Filt Rate 87 ml/min (>60); GFR (African American) 105 ML/MIN (>60); Globulin 2.8 g/dL (1.3-3.2); Total Protein,Serum 6.9 g/dl (6.3-8.2)
[2021-03-10 21:23] LABS: Glucose 109 mg/dl (74-100)
[2021-03-10 22:09] LABS: Lymphocytes % 5 % (10-50); Monocytes % 7 % (2-9); Neutrophils % 84 % (42-76); Platelet Estimate Normal; Total Cells Counted 100
[2021-03-11] VITALS: BP 118/72; PULSE 97; RESP 16; TEMP 36.6; O2SAT 97
[2021-03-11 04:00] VITALS: BP 126/68; PULSE 69; RESP 16; TEMP 36.5; O2SAT 97
[2021-03-11 05:00] VITALS: BMI 33.2
--- NOTE | 2021-03-11 07:37 | HMH.ANESII ---
[facility] Anesthesia Record Part II Discharge Time: 13:53 Destination: Medical Surgical Department PACU nurse assessment reviewed?: Yes Patient Condition:: Good Anesthesia Complications:: None Swallowing reflex intact?: Yes Cyanosis?: No Blood Pressure: 140/90 Pulse Rate: 92 Temperature: 98.1 F Mental Status: Alert & Oriented Pain level:: 0 Nausea and/or vomitting:: None Intake, IV Amount: 0
[2021-03-11 07:38] VITALS: BP 140/90; PULSE 92; TEMP 36.7
[2021-03-11 08:00] VITALS: BP 133/76; PULSE 88; RESP 18; TEMP 36.7; O2SAT 99
--- NOTE | 2021-03-11 08:54 | HMH.CONS ---
*Admission Date: 03/10/21 *Reason for consult:: Medical management *History of present illness: 30-year-old white male with complex foot deformities, admitted for surgery yesterday. I'm asked to consult for medical management postoperatively and discharge planning. Patient has a long history of valvular issues and has had multiple valvular surgeries. OR went well, patient is pleasant, alert, oriented. See notes below [facility] History I have reviewed the patient's past medical history: Yes Medical History: Reports:: Congenital Heart Disease, Gastroesophageal Reflux Disease(GERD), Valvular Heart Disease Denies:: Cancer, Diabetes Mellitus Type 1, Diabetes Mellitus Type 2, Internal Pacemaker, MRSA, Seizures *Have you ever received a pneumonia vaccine?: No *Have you received a flu vaccine this season?: No Other Medical History: Denies: Blood Transfusion Reaction Anesthesia experience/problems:: None Other Surgeries: Yes: No Previous Surgery, Cardiac Surgery, Other Valve Replacement. No: Pacemaker Amputation: No Fractures: No - *Social History Last grade of school completed: Some college Smoking Status: Never smoker Alcohol Intake: current Alcohol Intake Frequency:: holidays/special occasions only Substance Use Type: denies use *Occupational Status:: employed Housing: house Household Members: family *Travel in the last 8 weeks: None Family Hx:: Cancer, Coronary Artery Disease, Diabetes, Heart Attack, Hypertension, Kidney Disease Review of Systems - Review of Systems Review of systems:: pertinent systems reviewed and negative unless documented below - *Neurologic Denies abnormal walking, Denies abnormal hearing Meds Home Medications Medication Instructions Recorded Confirmed Type Aspirin [Low Dose Aspirin EC] 81 mg PO DAILY 06/17/20 03/10/21 History Losartan Potassium [Cozaar 50mg 50 mg PO DAILY 06/17/20 03/10/21 History Tablets] Metoprolol Succinate [Metoprolol 50 mg PO DAILY 06/17/20 03/10/21 History Succinate 50mg Tablet*] ergocalciferol (vitamin D2) 1,250 1,250 mcg PO WEEKLY 90 Days #13 cap 03/08/21 03/10/21 Rx mcg (50,000 unit) capsule ibuprofen 800 mg tablet 800 mg PO BID 30 Days #60 tab 03/08/21 03/10/21 Rx ondansetron 4 mg disintegrating 4 mg PO Q6H #30 tab 12/20/21 12/22/21 Rx tablet oxycodone-acetaminophen 7.5 mg-325 1 tab PO Q4-6H PRN 7 Days #30 tab 03/09/21 03/10/21 Rx mg tablet diazepam 5 mg tablet 5 mg PO BID PRN #14 tab 03/10/21 Rx enoxaparin 40 mg/0.4 mL 40 mg SQ QDAY 20 Days #8 ml 03/10/21 Rx subcutaneous syringe ketorolac 10 mg tablet 10 mg PO Q6H PRN 5 Days #20 tab 03/10/21 Rx Allergies Allergy/AdvReac Type Severity Reaction Status Date / Time No Known Allergies Allergy Verified 03/10/21 06:11 Exam Vital signs and Labs for Last 24 Hours: Temp Pulse Resp BP Pulse Ox 98.1 F 92 H 16 140/90 97 03/11/21 07:38 03/11/21 07:38 03/11/21 04:00 03/11/21 07:38 03/11/21 04:00 Laboratory Results - last 24 hr 03/10/21 07:42: Urine Color Yellow, Urine Appearance Clear, Urine pH 5.5, Ur Specific [place] >= 1.030, Urine Protein Negative, Urine Glucose (UA) Negative, Urine Ketones Negative, Urine Blood Trace-i, Urine Nitrate Negative, Urine Bilirubin Negative, Urine Urobilinogen 0.2, Ur Leukocyte Esterase Negative, Urine RBC Occasional, Urine WBC Occasional, Ur Squamous Epith Cells Occasional, Urine Bacteria Trace 03/10/21 20:58: WBC 19.2 H D, RBC 4.61, Hgb 13.9 L, Hct 43.7, MCV 94.8 H, MCH 30.1, MCHC 31.7 L, RDW 13.6, Plt Count 267, MPV 8.6, Neut % (Auto) 87.3 H, Lymph % (Auto) 6.5 L, Frontier % (Auto) 5.9, Eos % (Auto) 0.0 L, Baso % (Auto) 0.2, Neut # (Auto) 16.8 H, Lymph # (Auto) 1.3, Frontier # (Auto) 1.1 H, Eos # (Auto) 0.0, Baso # (Auto) 0.0, Total Counted 100, Neutrophils % (Manual) 84 H, Band Neutrophils % 4.0, Lymphocytes % (Manual) 5 L, Monocytes % (Manual) 7, Platelet Estimate Normal 12/22/21 20:58: Sodium 137, Potassium 4.2, Chloride 101, Carbon Dioxide 29, Anion Gap 11
--- NOTE | 2021-03-11 08:59 | HMH.PTEV ---
Physical Therapy Evaluation Rehab PT IP Evaluation Start: 03/10/21 13:42 Freq: ONCE Status: Active Protocol: Document 03/11/21 08:55 MARIA DEL ROSARIO (Rec: 03/11/21 08:59 MARIA DEL ROSARIO [id number]) Subjective/History History History Patient is a 30-year-old male was admitted after right flatfoot reconstruction 2020. No Intra-Op complications noted. Patient had similar surgery on the left foot which required 23- hour observation stay. He was admitted previously for blood pressure metoprolol management by his PCP Dr. Castillo. Subjective Subjective Pt reports he is able to move toes on R foot but still has no sensation - pt reports he has crutches and PKS at home Rehab PT IP Eval Objective Appearance Patient Behavior Appropriate,Cooperative Patient Orientation Person,Place,Time Difficulty following instructions none Speech Pattern Clear,Appropriate Ambulation Patient Able to Ambulate Yes Ambulation Observation IP General Gait Pattern Observation Decrease Weight Bear (R) Ambulation Assistive Device Rolling Walker,Axillary Crutches Ambulation Ability Supervision/Stand by,Contact Guard/Hand Hold Balance Ability to Arise Able, uses arms to help Sitting Balance Steady, safe Standing Balance Unsteady Dynamic Sitting Balance Ability Good Dynamic Standing Balance Ability Poor Transfers Bed Transfer Ability Independent Sit to Stand Bed Transfer Ability Supervision/Stand by Rehab PT IP prob,goals,plan Problems Date of Evaluation: 03/11/21 PT IP Problems Transfers,Gait,Balance,Self care Rehab Potential Rehab Potential Good Equipment Needs Assistive Devices Axillary Crutches Discharge Plan PT Discharge Plan Pt to dc to home today w/ appropriate AD's and assistance - pt had identical surgery on L foot and did well w/out complications - pt should progress well this time as well - G -code Required No Eval Complexity Eval Charge Codes 27357 - Moderate Complexity
--- NOTE | 2021-03-11 08:59 | HMH.PHAVTE ---
[facility] Pharmacy VTE Monitoring - Patient Demographics Admission date: 03/10/21 Report Date: 03/11/21 Time: 08:59 Allergies/Adverse Reactions: Patient Allergies No Known Allergies Allergy (Verified 03/10/21 06:11) Height: 1.78 m Weight: 105.233 kg Patient Problems: Current Active Problems Acquired pes planus of right foot (Acute) Tarsal coalition of right foot (Acute) Hypertension (Acute) Status post foot surgery (Acute) History of aortic valve replacement with bioprosthetic valve (Chronic) - VTE Risk Labs: VTE Related Lab Results Hgb 13.9 g/dL (14.1-18.0) L 03/10/21 20:58 Hct 43.7 % (42.0-52.0) 03/10/21 20:58 Plt Count 267 K/mm3 (142-424) 03/10/21 20:58 BUN 13 mg/dl (9-20) 03/10/21 20:58 Creatinine 1.00 mg/dl (0.66-1.25) D 03/10/21 20:58 Estimated Creat Clear 160 mL/min (50-200) 03/10/21 20:58 VTE Risk Level: Low Risk - Prophylaxis VTE Prophylaxis Ordered?: Yes Types of VTE Prophylaxis: IPCS Thigh High, Pharmacological Pharmacologic Type: Enoxaparin
--- NOTE | 2021-03-11 10:19 | SW/DCPLANNER ---
Dr Sanchez has stated that no DME is needed at this time. Patient has been set up with meds to bed. Patient will discharge home today.
[2021-03-11 11:30] VITALS: BMI 33.1
== END 2021-03-11 12:05 | disposition home or self-care (01) ==
LOC: 2ND 12:55
PROVIDERS: Admitting Provider Podiatrist; PCP Internal Medicine Adolescent Medicine; Visit Provider Podiatrist
PROC: (CPT 28735; principal; 2021-03-10 07:30)
DX: M21.41 Flat foot [pes planus] (acquired), right foot (principal); Z20.822 Contact with and (suspected) exposure to COVID-19; M76.821 Posterior tibial tendinitis, right leg; M79.671 Pain in right foot; M25.571 Pain in right ankle and joints of right foot; M21.861 Other specified acquired deformities of right lower leg; M25.871 Other specified joint disorders, right ankle and foot; M19.071 Primary osteoarthritis, right ankle and foot
CPT/HCPCS: 28735; 27687; 28116; 28715; 28300; 27626; 15275; 73600; 73620; 73650; 76000; 80053; 81001; 85007; 85025; 96374; 97162; C1713; C1734; C1762; C9399; C9803; G0378; J0131; J2405; Q4211; U0003; U0005

== ENCOUNTER → 2021-04-08 09:21 | Outpatient (CLI) | payer BC, SELFPAY ==
--- NOTE | 2021-04-08 09:24 | XR_ITS ---
FINAL REPORT CLINICAL HISTORY: postop views COMPARISON: March 10, 2021 FINDINGS: RIGHT FOOT Three views of the right foot were obtained. Again seen are postoperative changes of the mid and rear foot with multiple screws and multiple primo present. The bony alignment is not significantly changed. There are no new abnormalities. The soft tissues are unremarkable. A cast has been removed. IMPRESSION: Postoperative changes as above Reviewed, Interpreted and Dictated by Da Rodríguez III, MD Transcribed by Marylu Lua Authenticated by Da Rodríguez III, MD on 04/08/2021 11:00:37 AM [facility]
--- NOTE | 2021-04-08 09:24 | XR_ITS ---
FINAL REPORT CLINICAL HISTORY: postop views COMPARISON: March 10, 2021 FINDINGS: RIGHT HEEL Two views of the right heel demonstrate postoperative changes of the mid and rear foot with multiple screws and multiple primo present. The bony alignment is not significantly changed. There are no new abnormalities. The soft tissues are unremarkable. A cast has been removed. IMPRESSION: Postoperative changes as above Reviewed, Interpreted and Dictated by Da Rodríguez III, MD Transcribed by Marylu Lua Authenticated by Da Rodríguez III, MD on 04/08/2021 11:00:34 AM [facility]
== END ==
PROVIDERS: PCP Internal Medicine Adolescent Medicine; Visit Provider Podiatrist
DX: M79.671 Pain in right foot (principal); Z98.890 Other specified postprocedural states
CPT/HCPCS: 73630; 73650

== ENCOUNTER → 2021-04-29 09:35 | Outpatient (CLI) | payer BC, SELFPAY ==
--- NOTE | 2021-04-29 09:37 | XR_ITS ---
FINAL REPORT CLINICAL HISTORY: postop views, sx in feb 2021 COMPARISON: April 08, 2021 FINDINGS: RIGHT FOOT: Three simulated weight-bearing views of the right foot were obtained. There are postoperative changes from fusion of the midfoot and rear foot with surgical screws and primo. There is chronic appearing deformity of the navicular. Bony alignment is stable. There is no acute bony abnormality. IMPRESSION: Stable postoperative changes. Reviewed, Interpreted and Dictated by Da Rodríguez III, MD Transcribed by Ashvin Bolaños Authenticated by Da Rodríguez III, MD on 04/29/2021 11:25:50 AM [facility]
== END ==
PROVIDERS: PCP Internal Medicine Adolescent Medicine; Visit Provider Podiatrist
DX: M79.671 Pain in right foot (principal); G89.18 Other acute postprocedural pain; Z98.890 Other specified postprocedural states
CPT/HCPCS: 73630

== ENCOUNTER 2021-06-23 16:00 | Outpatient (RCR) | payer BC, SELFPAY ==
--- NOTE | 2021-05-07 08:47 | HMH.PTOPEV ---
PT Outpatient Evaluation Rehab PT Outpatient Evaluation Start: 05/07/21 08:32 Freq: Status: Active Protocol: Document 05/07/21 08:32 OSITO (Rec: 05/07/21 08:46 OSITO [id number]) Electronically Signed By Toby Gutiérrez, PT 05/07/21 08:32 Outpatient Therapy Subjective History Subjective History Patient is a 30 year old male presenting to outpatient PT with reports of R post- surgical foot pain S/P R mid and hind foot reconstruction performed 03/10/22. Patient reports hx of chronic bilateral foot pain secondary to flat foot. Patient underwent simialar L foot reconstruction approximately 1 year ago with significant improvements noted. Comorbidities include hx of open heart surgery for valve replacement. Chief Complaint Pain,Stiff,Swelling, Paresthesia,Weakness Symptom Type Ache,Dull Symptoms Relieved By Rest/Positioning,Ice, Prescription Meds,Elevation Symptoms Aggravated By Standing,Physical Activity, Walking Prior Functional Limitations Standing,Walking Current Functional Limitations Housework,Standing,Recreation Activity,Walking,Stairs, Balance Symptom Description Constant but Variable Level of pain today (0-10) 2 Pain scale - at its best (0-10) 2 Pain scale - at its worst (0-10) 4 Ankle/Foot Eval Gait Observation General Gait Pattern Observation Antalgic Gait,Decrease Weight Bear (R) Assistive Device Ambulation Assistive Device Axillary Crutches Palpation Tenderness right Ankle/Foot Palpation Findings Tenderness Ankle/Foot Palpation Overall Comment about surgical incisions 2/4 ROM Ankle/Foot Dorsiflexion w/Knee Extended -3 Active Range Motion (degrees) Ankle/Foot Dorsiflexion w/Knee Extended 1 Passive Range (degrees) Ankle/Foot Plantar Flexion Active Range WFL of Motion (degrees) Ankle/Foot Eversion Active Range of 5 Motion (degrees) Ankle/Foot Eversion Passive Range of 8 Motion (degrees) Ankle/Foot Inversion Active Range of 10 Motion (degrees) Ankle/Foot Inversion Passive Range of 19 Motion (degrees) Ankle/Foot ROM Limitations Soft Tissue Tightness,Bony
== END 2021-06-23 16:05 | disposition home or self-care (01) ==
LOC: PT 16:00
PROVIDERS: PCP Internal Medicine Adolescent Medicine; Visit Provider Podiatrist
DX: Z98.890 Other specified postprocedural states (principal); M76.61 Achilles tendinitis, right leg; M21.41 Flat foot [pes planus] (acquired), right foot
CPT/HCPCS: 97010; 97014; 97016; 97110; 97112; 97140; 97163; 97164; G0283

== ENCOUNTER → 2021-08-24 12:28 | Outpatient (CLI) | payer BC, SELFPAY ==
--- NOTE | 2021-08-24 12:30 | XR_ITS ---
FINAL REPORT CLINICAL HISTORY: pain, f/u surgery rt foot COMPARISON: 04/29/2021 FINDINGS: RIGHT FOOT Three views were obtained. There are postoperative changes in the midfoot and where foot. One staple anteriorly seen on the lateral view is broken. This is new since the prior IMPRESSION: Broken screw as above. Reviewed, Interpreted and Dictated by Da Rodríguez III, MD Transcribed by Viky Tomas Authenticated and [facility]
--- NOTE | 2021-08-24 12:30 | XR_ITS ---
FINAL REPORT CLINICAL HISTORY: pain, f/u surgery rt foot COMPARISON: 04/08/2021 FINDINGS: RIGHT CALCANEUS Two views were obtained. There are postoperative changes in the midfoot and where foot. One staple anteriorly seen on the lateral view is broken. This is new since the prior IMPRESSION: Broken screw as above. Reviewed, Interpreted and Dictated by Da Rodríguez III, MD Transcribed by Viky Tomas Authenticated and [facility]
== END ==
PROVIDERS: PCP Internal Medicine Adolescent Medicine; Visit Provider Podiatrist
DX: M79.671 Pain in right foot (principal); M77.8 Other enthesopathies, not elsewhere classified; L90.5 Scar conditions and fibrosis of skin; M96.89 Other intraoperative and postprocedural complications and disorders of the musculoskeletal system; Z98.890 Other specified postprocedural states
CPT/HCPCS: 73630; 73650

== ENCOUNTER → 2021-10-13 14:12 | Outpatient (CLI) | payer BC, SELFPAY ==
--- NOTE | 2021-10-13 14:12 | CT_ITS ---
FINAL REPORT TECHNIQUE: Thin section axial CT images with coronal and sagittal reformats were performed of the right foot. This study was performed with techniques to keep radiation doses as low as reasonably achievable (ALARA). Individualized dose reduction techniques using automated exposure control or adjustment of mA and/or kV according to the patient''s size were employed. CLINICAL HISTORY: Right foot pain, broken hardware, postoperative COMPARISON: 08/24/2021 FINDINGS: There are extensive postoperative changes to the hind and midfoot. There are 2 large screws associated with talocalcaneal fusion with bony fusion of the talocalcaneal joint. There is a large staple associated with calcaneocuboid fusion. Several screws as well as a large staple is seen associated with talonavicular fusion and fusion of the navicular to the medial and middle cuneiforms. The staple/screw within the medial cuneiform is fractured. Lisfranc articulation is intact. There is incomplete bony fusion of the talonavicular joint and between the navicular and cuneiforms. Some fragmentation is seen of the navicular. Remaining osseous structures are without acute abnormality. The Achilles tendon is intact. There is no significant joint effusion. Mild soft tissue edema is seen along the lateral hindfoot. IMPRESSION: Extensive postoperative changes of hind and midfoot fusion with incomplete bony fusion as above. Fractured screw at the medial cuneiform. Reviewed, Interpreted and Dictated by Neha Cerrato MD Transcribed by Sandy Robert Authenticated and [facility]
== END ==
PROVIDERS: PCP Internal Medicine Adolescent Medicine; Visit Provider Podiatrist
DX: Z98.890 Other specified postprocedural states (principal); M79.671 Pain in right foot; M96.89 Other intraoperative and postprocedural complications and disorders of the musculoskeletal system; R60.0 Localized edema
CPT/HCPCS: 73700

== ENCOUNTER → 2022-01-10 14:10 | Outpatient (CLI) | payer BC, SELFPAY ==
--- NOTE | 2022-01-10 14:13 | XR_ITS ---
FINAL REPORT CLINICAL HISTORY: post foot surgery month follow-up COMPARISON: 08/24/2021 FINDINGS: RIGHT FOOT 3 views were obtained. There are postoperative changes from talocalcaneal fusion and fusion of multiple bones in the midfoot. There is a staple in the medial cuneiform the which is fractured but stable. Bony alignment is normal. The hardware appears stable. IMPRESSION: Stable postoperative changes. Reviewed, Interpreted and Dictated by Da Rodríguez III, MD Transcribed by Laurita Tracey Authenticated and [facility]
== END ==
PROVIDERS: PCP Internal Medicine Adolescent Medicine; Visit Provider Podiatrist
DX: Q66.89 Other specified congenital deformities of feet; M79.671 Pain in right foot; Z98.890 Other specified postprocedural states
CPT/HCPCS: 73630

== ENCOUNTER → 2022-03-07 13:59 | Outpatient (CLI) | payer BC, SELFPAY ==
--- NOTE | 2022-03-07 14:04 | XR_ITS ---
FINAL REPORT CLINICAL HISTORY: post op f/u from right foot surgery COMPARISON: 01/11/2020 FINDINGS: RIGHT FOOT: Three views of the right foot were obtained. There are postoperative changes from fusion of the midfoot and rear foot. There are multiple primo and screws. One of the primo is broken at the medial midfoot but appears stable. Mild degenerative changes are seen. There is no acute abnormality. IMPRESSION: Stable postoperative changes as above. Reviewed, Interpreted and Dictated by Da Rodríguez III, MD Transcribed by Laurita Tracey Authenticated and [facility]
== END ==
PROVIDERS: PCP Internal Medicine Adolescent Medicine; Visit Provider Podiatrist
DX: Q66.89 Other specified congenital deformities of feet (principal)
CPT/HCPCS: 73630

== ENCOUNTER → 2022-10-03 12:58 | Outpatient (CLI) | payer BC, SELFPAY | PROVIDERS: PCP Internal Medicine Adolescent Medicine; Visit Provider Nurse Practitioner Family | DX: R94.31 Abnormal electrocardiogram [ECG] [EKG] (principal); Z95.2 Presence of prosthetic heart valve; Z95.3 Presence of xenogenic heart valve | CPT/HCPCS: 93306 ==

== ENCOUNTER 2023-10-02 10:45 | Outpatient (CLI) | payer BC, SELFPAY ==
[2023-10-02 11:33] LABS: Basophils % 0.8 % (0.1-2.0); Eosinophils # 0.1 K/mm3 (0.0-0.4); Eosinophils % 1.4 % (0.1-12.0); Hematocrit 43.1 % (42.0-52.0); Hemoglobin 14.3 g/dL (14.1-18.0); Lymphocytes # 2.1 K/mm3 (0.7-4.5); Lymphocytes % 39.9 % (10-50); Mean Corpuscular HGB Conc 33.3 g/dL (31.8-35.4); Mean Corpuscular Volume 93.1 fl (80-94); Mean Platelet Volume 8.4 fl (7.4-10.4); Monocytes # 0.3 K/mm3 (0.1-1.0); Monocytes % 5.8 % (1.7-9.3); Neutrophils # 2.7 K/mm3 (1.8-7.8); Neutrophils % 51.9 % (37.0-80.0); Platelet Count 220 K/mm3 (142-424); Red Blood Count 4.62 M/mm3 (4.60-6.20); Red Cell Distribution Width 13.7 % (11.5-17.5); White Blood Count 5.3 K/mm3 (4.8-10.8)
[2023-10-02 11:43] LABS: Alanine Aminotransferase 24 U/L (12-78); Albumin Level 4.5 g/dl (3.5-5.0); Alkaline Phosphatase 90 U/L (38-126); Anion Gap 9.2 mEq/L (5-15); Aspartate Amino Transferase 26 U/L (17-59); Bilirubin,Indirect 0.6 mg/dL (0.0-0.9); Bilirubin,Total 0.6 mg/dl (0.2-1.3); Bilirubin,Unconjugated 0.6 mg/dL (0.0-1.1); Blood Urea Nitrogen 13 mg/dl (9-20); Calcium 9.8 mg/dl (8.4-10.2); Carbon Dioxide 28 mmol/L (22.0-30.0); Chloride 107 mmol/L (98-107); Cholesterol 193 mg/dl (140-200); Estimated Glomerular Filt Rate 130 ml/min (>60); GFR (African American) 157 ML/MIN (>60); Glucose 92 mg/dl (74-100); HDL Cholesterol 48 mg/dl (40-60); Potassium 4.2 mmoL/L (3.5-5.1); Sodium 140 mmol/L (136-145); Total Protein,Serum 7.3 g/dl (6.3-8.2); Triglycerides 164 mg/dl (30-150); VLDL Cholesterol 33 mg/dL (0-40)
[2023-10-02 11:53] LABS: Direct LDL Cholesterol 109.42 mg/dL (100-129)
[2023-10-02 11:59] LABS: Free T4 (Free Thyroxine) 0.95 ng/dl (0.78-2.19)
[2023-10-02 12:14] LABS: Thyroid Stimulating Hormone 1.23 uIU/mL (0.465-4.68)
== END 2023-10-02 23:59 | disposition home or self-care (01) ==
LOC: LAB 10:45
PROVIDERS: PCP Internal Medicine Adolescent Medicine; Visit Provider Nurse Practitioner
DX: I10 Essential (primary) hypertension (principal); Z95.3 Presence of xenogenic heart valve; Z95.2 Presence of prosthetic heart valve
CPT/HCPCS: 36415; 80048; 80061; 80076; 84439; 84443; 85025

== ENCOUNTER 2024-11-04 07:33 | Outpatient (CLI) | payer BC, SELFPAY ==
--- OUTSIDE RECORDS SUMMARY | 2024-11-04 07:36 | XMS_ITS | Clinical Summary ---
Author Organization Healthcare Address [address] [place] [address] [address] Care [address] Recording Monitor Name Role Phone Raz Castillo MD Primary Care Provider + [phone] Family History Medical History Relation Name Comments Hypertension Father Cardiac disorder Maternal Grandfather Diabetes Maternal Great-Grandfather Conversions - Other Mother Leaky he art valve Cardiac disorder Paternal Grandfather Relation Name Status Comments Father Maternal Grandfather Maternal Great-Grandfather Mother Paternal Grandfather Social History Tobacco Use Types Packs/Day Years Used Date Smoking Tobacco: Never Alcohol Use Standard Drinks/Week Comments Yes 0 (1 standard drink = 0.6 oz pur e alcohol) Sex and Gender Information Value Date Recorded Sex Assigned at Not on file Legal Sex Male 8:42 PM EDT Gender Identity Not on file Sexual Orientation Not on file Last Filed Vital Signs Vital Sign Reading Time Taken Comments Blood Pressure 112/61 10/03/2022 3:13 PM EDT Pulse 69 10/03/2022 3:13 PM EDT Temperature 36.7 C (98.1 F) 09/25/2018 2:57 PM EDT Respiratory Rate - - Oxygen Saturation - - Inhaled Oxygen Concentration - - Weight 98.9 kg (218 lb) 10/03/2022 3:13 PM EDT Height 177.8 cm (5' 10 ) 10/03/2022 3:13 PM EDT Body Mass Index 31.28 10/03/2022 3:13 PM EDT Plan of Treatment Health Maintenance Due Date Last Done Comments [facility]-Depression Screening 1989 [facility]-Infant/Child/Adol SDOH Screenings 1989 [facility]-Varicella Vaccines (1 of 2 - 13+ 2-dose series) 2002 [facility]- SDOH Screenings 12/09/2007 [facility]-Adult SDOH Screenings 12/09/2007 [facility]-DTaP,Tdap,and Td Vaccines (1 - Tdap) 2008 [facility]-Hepatitis B Vaccines (1 of 3 - 19+ 3-dose series) 2008 HPV Vaccines (1 - 3-dose SCDM series) 2016 [id number] Vaccine (3 - 2023- season) 2023 12/09/2020, 11/11/2020 [facility]-Influenza Vaccine (#1) 2024 02/18/2019 [facility]-Zoster Vaccines (1 of 2) 12/09/2039 [facility]-HIB Vaccines Aged Out No longer e ligible based on patient's age to complete this topic [facility]-Hepatitis A Vaccines Aged Out No longer eligible based on patient's age to complete this topic [facility]-IPV Vaccines Aged Out No longer e ligible based on patient's age to complete this topic [facility]-Pneumococcal Vaccine: Pediatrics (0 to 5 Years) and At-Risk Patients (6 to 49 Years) Aged Out No longer eligible b ased on patient's age to complete this topic [facility]-Rotavirus Vaccines Aged Out No lo nger eligible based on patient's age to complete this topic Additional Health Concerns Infection Onset Date Last Indicated MRSA Comment:Pt posiitve for MRSA from an [facility] 04/27/2018 08/11/[address] [employer] Care Teams Court Recording Monitor Relationship Specialty Start Date End Date Raz Castillo MD [address] [place] [address] [place] [address] [facility] - General 07/31/20
[2024-11-04 07:54] LABS: Hematocrit 41.3 % (42.0-52.0); Hemoglobin 13.8 g/dL (14.1-18.0); Immature Granulocytes % 0.2 %; Mean Corpuscular HGB Conc 33.4 g/dL (31.8-35.4); Mean Corpuscular Hemoglobin 30.2 pg (27.0-31.2); Mean Corpuscular Volume 90.4 fl (80-94); Nucleated Red Blood Cells % 0 %; Platelet Count 209 K/mm3 (142-424); Red Blood Count 4.57 M/mm3 (4.60-6.20); Red Cell Distribution Width-SD 41.3 fL; White Blood Count 4.7 K/mm3 (4.8-10.8)
--- NOTE | 2024-11-04 08:00 | CA_ITS ---
APPROVED REPORT EXAM: Comprehensive 2D, Doppler, and color-flow Echocardiogram Medical Staff Credentialing Coordinator: Joyce Hilton RVT Ht: 5 ft 10 in Wt: 236lbs BSA: 2.24 BP: 119/68 mmHg Indications: LV FUNCTION,AVR-BIOPROSTHETIC 2D Dimensions Left Atrium 4.03 cm M: 3.0 - 4.0 LA Volume 59.90 mL RVID Base (AP4) 2.92 cm (M/F) 2.5-4.1 LA Volume Index 26.74 mL/m2 (M/F) 16-34 LVOT 2.80 cm (M/F) 1.5-2.5 EF AP4 57.70 % GL Strain -18.8 % M-Mode Dimensions RVDd 2.50 cm (0.9-2.6) LVDd 4.95 cm (3.5-5.7) Ao Diam 3.08 cm (2.0-3.7) LVDs 2.24 cm (3.5-5.7) IVSd 0.97 cm (0.6-1.1) PWd 0.93 cm (0.6-1.1) EF (Teich) 85.30% FS 54.70% EDV (Teich) 115.50 mL TAPSE 1.97 (<1.7) ESV (Teich) 17.00 mL LV Diastology E Decel Time 150 (160-240 msec) E/A Ratio 2.0 MED E' 8.6 (>= 7 cm/sec) E'/MED E' Ratio 13.05 (<= 14) LAT E' 17.6 (>= 10 cm/sec) E/LAT E' Ratio 6.38 (<= 14) Aortic Valve LVOT Max 113.0 (70-110 cm/s) KANCHAN Index 1.01 cm2/m2 LVOT VTI 24.96 cm AoV Peak Mario. 340.0 (50-130 cm/s) AI PHT 454.00 ms AO Peak GR. 42.90 mmHg AO Mean GR. 24.90 (<5 mmHg) AO VTI 68.1 (18-25 cm) KANCHAN (VTI) 2.26 (2.5-4.5 cm2) Mitral Valve MV E Max Mario. 112.0 (40-130 cm/s) MV A Velocity 56.0 (40-130 cm/s) E/A Ratio 2.01 MV Decel. Time 150 (160-240 ms) Tricuspid Valve TR P. Velocity 249.00 cm/s RAP Estimate 8.00 mmHg RVSP 32.70 mmHg Left Ventricle The left ventricle is normal size. Left ventricular systolic function is normal. The left ventricular ejection fraction is within the normal range. There is normal left ventricular wall thickness. There is normal LV segmental wall motion. The left ventricular diastolic function is indeterminate. LVEF is 55% Right Ventricle The right ventricle is normal size. The right ventricular systolic function is normal. Atria The left atrium is mildly dilated. The right atrium is mildly dilated. There is no color Doppler evidence of interatrial shunt. Aortic Valve s/p bioprosthetic AVR (23 mm Magna Ease). The prosthesis is well-seated. Peak velocity 3.3 m/s. Mean AV gradient 24 mmHg. Max AV gradient 42 mmHg. Acceleration time 80 ms. DVI=0.40. Mild central aortic regurgitation is present. Mitral Valve The mitral valve is normal in structure. No evidence of mitral valve stenosis. Mild mitral regurgitation is present. Tricuspid Valve The tricuspid valve leaflets are thin and pliable. Mild tricuspid regurgitation. RVSP is 20-25 mmHg. Pulmonic Valve The pulmonary valve is grossly normal in structure. Mild pulmonic valve regurgitation is present. Great Vessels The aortic root is normal in size. IVC is normal in size and collapses >50% with inspiration. Pericardium There is no pericardial effusion. Other Information Study Quality: Fair Conclusion Normal biventricular systolic function. Mild biatrial dilation. s/p bioprosthetic AVR (23 mm Magna Ease). The prosthesis is well-seated. (peak velocity 3.3 m/s. Mean AV gradient 24 mmHg. Max AV gradient 42 mmHg. Acceleration time 80 ms, DVI=0.40). Mild central AI. Mild MR, mild TR, mild PI. In the setting of bioprosthetic AVR, the gradients are slightly elevated, but overall are unchanged compared to prior TTE from 2022. The acceleration time and DVI are also within acceptable range. Clinical correlation is suggested. Electronically signed by : Afsaneh Argueta MD 11/05/2024 15:12:08
[2024-11-04 08:15] LABS: Albumin Level 4.5 g/dl (3.5-5.0)
[2024-11-04 08:17] LABS: Bilirubin,Unconjugated 0.3 mg/dL (0.0-1.1)
[2024-11-04 08:18] LABS: Alanine Aminotransferase 23 U/L (12-78); Alkaline Phosphatase 99 U/L (38-126); Aspartate Amino Transferase 27 U/L (17-59); Bilirubin,Direct 0.2 mg/dl (0.0-0.4); Bilirubin,Indirect 0.3 mg/dL (0.0-0.9); Bilirubin,Total 0.5 mg/dl (0.2-1.3); Cholesterol 149 mg/dl (140-200); HDL Cholesterol 44 mg/dl (40-60); Magnesium 2.1 mg/dl (1.6-2.3); Total Protein,Serum 7.0 g/dl (6.3-8.2); Triglycerides 141 mg/dl (30-150)
[2024-11-04 08:35] LABS: Free T4 (Free Thyroxine) 0.94 ng/dl (0.78-2.19)
[2024-11-04 08:49] LABS: Thyroid Stimulating Hormone 1.29 uIU/mL (0.465-4.68)
== END 2024-11-04 23:59 | disposition home or self-care (01) ==
PROVIDERS: PCP Internal Medicine Adolescent Medicine; Visit Provider Nurse Practitioner
DX: I08.8 Other rheumatic multiple valve diseases (principal); I11.9 Hypertensive heart disease without heart failure; T82.03XA Leakage of heart valve prosthesis, initial encounter; R94.31 Abnormal electrocardiogram [ECG] [EKG]; Z95.3 Presence of xenogenic heart valve
CPT/HCPCS: 36415; 80061; 80076; 83735; 84439; 84443; 85025; 93306